=== PATIENT | male | born 1945 | race Caucasian/White ===

== ENCOUNTER 2019-09-23 07:46 | Inpatient (IN) | payer MEDICARE, OTHER ==
--- NOTE | 2019-09-16 15:11 | HP ---
HISTORY AND PHYSICAL: DATE OF ADMISSION/SURGERY: 10/13/19 DATE OF OFFICE VISIT: 09/15/19 SURGEON: Varsha Pickard MD.* (DICTATED BY ENRIQUE MA) PROCEDURE: Left total hip arthroplasty. CHIEF COMPLAINT: Left hip pain. HISTORY OF PRESENT ILLNESS: Mr. 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 He has failed conservative treatment and elected to proceed with a left total hip arthroplasty. PAST MEDICAL HISTORY: 1. Diabetes. 2. Hypertension. 3. Coronary artery disease . 4. Basal cell carcinoma. 5. Melanoma. 6. Sleep apnea. 7. GERD. PAST SURGICAL HISTORY: 1. Stent placement. 2. Vasectomy. 3. Right ACL repair. 4. Right total knee arthroplasty. 5. Lumbar laminectomies. 6. Multiple cervical fusions. CURRENT MEDICATIONS: 1. Gabapentin 600 mg 2 tabs twice a day. 2. Amlodipine 5 mg twice day. 3. Isosorbide mononitrate 60 mg daily. 4. Nitrostat as needed. 5. Atenolol 25 mg daily. 6. Tikosyn 500 mcg twice a day. 7. Pradaxa 150 mg twice a day. 8. Enalapril 10 mg twice a day. 9. Aspirin 81 mg a day. 10. Cymbalta 60 mg a day. 11. Flomax 0.4 mg 2 tabs daily. 12. Glipizide 5 mg at night. 13. Lipitor 10 mg q.h.s. 14. Metformin 1000 mg twice a day. 15. Zetia 10 mg daily. 16. Centrum Silver. 17. CoQ10. 18. Glucosamine. 19. Magnesium 500 mg twice a day. 20. Ranitidine 150 mg twice a day. 21. Doxycycline 50 mg twice a day. 22. Vitamin D. 23. Fish oil. 24. Jardiance 10 mg daily. ALLERGIES: No known drug allergies. FAMILY HISTORY: Coronary artery disease . SOCIAL HISTORY: He is a 74-year-old gentleman, lives with his . He does not smoke or use drugs. REVIEW OF SYSTEMS: A complete 14-point review of systems was reviewed with the patient. Positive for diabetes and GERD. He denies a history of DVT, PE, hepatitis, HIV, or anesthesia problems. PHYSICAL EXAMINATION GENERAL: He is well developed, well nourished, in no acute distress. VITAL SIGNS: He stands 73 inches tall, weighs 243 pounds, blood pressure is 148 /72, heart rate is 53. HEENT: Normocephalic, atraumatic. NECK: Supple. No palpable lymph nodes. PULMONARY: The lungs are clear to auscultation bilaterally. CARDIO: Regular rate and rhythm. Strong S1 and S2. ABDOMEN: Soft, nontender, and nondistended. MUSCULOSKELETAL: Left lower extremity, the skin is intact. There are no open wounds or abrasions. He walks with an antalgic type gait favoring his left hip. He has decreased internal and external rotation of the left hip. He has a 2+ dorsalis pedis pulse. Intact sensation in his lower extremity. Muscle group strengths are intact at 5/5. NEUROLOGIC: He is alert and oriented x3. ASSESSMENT AND PLAN: Mr. Vuong is a 74-year-old gentleman with endstage osteoarthritis of the left hip. He has failed conservative treatment and elected to proceed with a left total hip arthroplasty. This surgery is scheduled for 09/23/[address] Pickard discussed the risks and benefits of the surgery at today's visit and all of his questions were answered. He will follow up with Dr. Pickard 2 weeks after the surgery. No TXA will be used in this patient. He was told to stop his Pradaxa 48 hours before the surgery. His last dose will be 09/20/19. He is going to continue his aspirin daily. ENRIQUE [place] [id number]/[facility] #: [id number] [facility] SQUARE HOSPITALRoberta
[~2019-09-23 07:46] MED LIST: Acetaminophen TAB* 325 MG PO ONE; Buffered Lidocaine 1% SYRIN* 1 ML/SYRINGE INTRADERM ONE; Gabapentin CAP(*) 300 MG PO ONE; Lactated Ringers 1000 ML Bag* 1,000 ML IV SCH; celeCOXIB CAP* 200 MG PO ONE
--- OUTSIDE RECORDS SUMMARY | 2019-09-23 07:50 | XMS REPORT | Continuity of Care Document ---
:1945 External Reference #:[id number] Demographics Address [address] [place] [address] Home Phone [phone] Mobile Phone [phone] Email Address Preferred Language en Marital Status Not or Gnosticist Affiliation Unknown Race White Ethnic Group Not or Author Name Varsha Pickard M.D. (transmitted by agent of provider Page Lopez) Address [address] [place] [id number] Care Team Providers Name Role Phone Jessie Salguero MD - Family Care Team Information Jackhammer Operator [phone] Medicine Yaneth Puente - Vascular Surgery Care Team Information Jackhammer Operator [phone] Anna Marie Desai MD - Neurology Care Team Information Jackhammer Operator Problems Active Problems Provider Date Impending infarction Igor Starks M.D., [facility] Onset: 07/14/2013 Coronary arteriosclerosis Igor Starks M.D., [facility] Onset: 2013 Palpitations Igor Starks M.D., [facility] Onset: 05/19/2014 Lumbosacral stenosis Anna Marie Desai M.D. Onset: 01/26/2015 Note: surgery 04/2011, 10/2013, 04/2016: L2-L5 fusion with rods Idiopathic peripheral neuropathy Anna Marie Desai M.D. Onset: 01/26/2015 Note: history mixed connective tissue disease (ELIJAH 1:1250) & diabetes Cervical myelopathy Anna Marie Desai M.D. Onset: 07/06/2015 Note: Surgery 02/22/15 and 04/28/15: C2-T2 fusion per patient report Heart murmur Igor Starks M.D., [facility], Onset: 08/09/2016 [facility] Dyspnea Igor Starks M.D., [facility], Onset: 08/01/2017 [facility] Thoracic aortic ectasia Igor Starks M.D., [facility], Onset: 04/26/2018 FASBEULAH Carotid artery occlusion Igor Starks M.D., [facility], Onset: 04/26/2018 [facility] Localized, primary osteoarthritis of Varsha Pickard M.D. Onset: 08/25/2019 the pelvic region and thigh Syncope and collapse Igor Starks M.D., [facility], Onset: 05/16/2019 [facility] Social History Type Date Description Comments Sex Unknown Tobacco Use Start: Unknown Former Cigarette End: Unknown Smoker 1 Pack Daily Smoking Status Reviewed: 08/25/19 Former Cigarette Smoker 1 Pack Daily ETOH Use Denies alcohol use ETOH Use Consumed 2 Alcoholic Beverages Per Day Tobacco Use Start: Unknown Patient is a former quit May End: Unknown smoker smoking ciagrettes Recreational Drug Use Denies Drug Use Exercise Type/Frequency Exercises rarely Pt active until three weeks ago (04/20/19) Allergies, Adverse Reactions, Alerts Description No Known Drug Allergies Medications Active Medications SIG Qnty Indications Ordering Provider Date Valium 1 tab by mouth 1 2tabs Anna Marie Desai, 05/27/2019 5mg Tablets hour prior to M.D. mri. may repeat x1 at mri, if not sedated Gabapentin take 2 by mouth Anna Marie Desai, 01/07/2018 600mg twice each day M.D. Tablets to equal 2400mg each day Amlodipine Besylate 1 by mouth every 90tabs Igor Starks, 01/10/2017 5mg day bid M.D., MARIAM MCDONALD Tablets Isosorbide 1 by mouth every 90tabs Igor Starks, 07/14/2013 Mononitrate ER day M.D., TAMARA, GISSELLNC 60mg Tablets ER 24HR Nitrostat 1 sl q5mins x3 100tabs Igor Starks, 05/26/2013 0.4mg Tablets as needed for M.D., MARIAM MCDONALD Sub chest pain, if no relief call 911 Atenolol 1 by mouth every 90tabs Igor Starks, 09/18/2012 25mg Tablets day M.D., MARIAM MCDONALD Tikosyn 1 by mouth twice 180caps Igor Starks, 09/18/2012 500mcg Capsules a day M.D., FACC, FASNC Pradaxa 1 cap by mouth 180caps Igor Starks, 09/18/2012 150mg Capsules twice a day TAMARA Pérez FASNC Enalapril Maleate 1 tab by mouth 180tabs Igor Starks, 06/11/2012 10mg twice a day Eddy.TAMARA Segura FASNC Tablets Jardiance 10 mg by mouth Unknown 10mg Tablets daily Ammonium Lactate use on Unknown 12% feet(bunions)twi Cream ce daily Fish Oil 1 tab by mouth Unknown 1000mg twice daily Capsules Vitamin D High 1 by mouth every Unknown Potency day 1000Unit Capsules Doxycycline Hyclate 1 by mouth twice Unknown daily 50mg Capsules Ranitidine HCL 1 po bid 60caps Unknown 150mg Capsules Magnesium take one tab by 60tabs Unknown 500mg Tablets mouth twice daily Glucosamine Sulfate 1 cap po bid Unknown Maximum Potency 1000mg Capsules Co Q-10 1 po qd 90caps Unknown 200mg Capsules Centrum Silver Adult 1 tab po daily Unknown 50+ Adult 50 Tablets Zetia 1 by mouth every 90tabs Igor Starks, 10mg Tablets day M.DTAMARA Guerrero FASNC Metformin HCL ER 1 tab po bid 90tabs Unknown 1000mg Tablets ER 24HR Lipitor 1 po qhs 90tabs Igor Starks, 10mg Tablets M.DTAMARA Guerrero FASNC Glipizide 1 tab by mouth 60tabs Unknown 5mg Tablets at night Flomax 2 caps po qd 90caps Unknown 0.4mg Capsules Cymbalta 1 by mouth every 30caps Unknown 60mg Caps DR day Part Aspirin Ec 1 po qd 90tabs Unknown 81mg Tablets DR Medications Administered in Office Medication SIG Qnty Indications Ordering Provider Date Inj, Regadenoson, 0.1 MG Igor Starks M.D., 08/06/2017 Injection MARIAM MCDONALD Technetium TC 99M Igor Starks M.D., 08/06/2017 Tetrofosmin, Per Unit Dose FACC, FASNC Up To 40 Millicuries Injection Inj, Regadenoson, 0.1 MG Jorge Agudelo, DO [facility] 04/20/2016 Injection Technetium TC 99M Jorge Donny Agudelo, DO [facility] 04/20/2016 Tetrofosmin, Per Unit Dose Up To 40 Millicuries Injection Technetium TC 99M Ramsey Jara M.D. 02/10/2015 Tetrofosmin, Per Unit Dose Up To 40 Mill[place] Injection Technetium TC 99M Eloy Eugene M.D. 02/10/2015 Tetrofosmin, Per Unit Dose Up To 40 Mill[place] Injection Immunizations Description No Information Available Vital Signs Date Vital Result Comment 08/25/2019 2:18pm Height 73.50 inches 6'1.50" Weight 242.00 lb Heart Rate 57 /min BP Systolic 136 mmHg BP Diastolic 80 mmHg Body Temperature 97.9 F Pain Level 8 BMI (Body Mass Index) 31.5 kg/m2 07/22/2019 8:36am Height 73.50 inches 6'1.50" Weight 239.38 lb Heart Rate 56 /min BP Systolic Sitting 137 mmHg BP Diastolic Sitting 74 mmHg Respiratory Rate 16 /min Body Temperature 97.9 F Pain Level 7 back and legs, constant O2 % BldC Oximetry 97 % BMI (Body Mass Index) 31.2 kg/m2 Results Description No Information Available Procedures Date Code Description Status 05/16/2019 62433 EKG Tracing & Interpretation Completed 07/23/2017 415045603 Diabetic Retinal Eye Exam Completed 06/04/2017 [id number] Diabetic Retinal Eye Exam Completed Medical Devices Description No Information Available Encounters Type Date Location Provider Dx Diagnosis Office Visit 07/22/2019 [facility], M48.07 Spinal stenosis, 8:30a [facility] [place] lumbosacral region [place] E11.42 Type 2 diabetes mellitus with diabetic polyneuropathy Office Visit 06/11/2019 1:30p [facility] Igor Jitendra I77.810 Thoracic aortic [facility] [place] Starks M.D., [facility]10 [place] heart disease [place] coronary artery w/o ang pctrs I48.0 Paroxysmal atrial fibrillation Office Visit 05/27/2019 [facility] Anna Marie M48.07 Spinal stenosis, 4:00p [facility] [place] Desai lumbosacral [facility] region Office Visit 05/16/2019 [facility] Igor Ham R55 Syncope and 12:45p Of [employer] [facility] [place] Starks M.D., collapse [facility] R42 Dizziness and giddiness I25.10 Athscl heart disease of [place] coronary artery w/o ang pctrs I48.0 Paroxysmal atrial fibrillation R94.31 Abnormal electrocardiogram [ECG] [EKG] Office Visit 04/22/2019 11:30a [facility] Anna Marie Desai, M79.651 Pain in [facility] [place] right thigh M79.652 Pain in left thigh M54.5 Low back pain R53.1 Weakness E11.42 Type 2 diabetes mellitus with diabetic polyneuropathy Assessments Date Code Description Provider 08/25/2019 M25.552 Pain in left hip Varsha Pickard M.D. 08/25/2019 M16.12 Unilateral primary osteoarthritis, Varsha Pickard M.D. left hip 08/25/2019 M25.551 Pain in right hip Varsha Pickard M.D. 08/25/2019 M16.11 Unilateral primary osteoarthritisVarsha M.D. right hip 07/22/2019 M48.07 Spinal stenosis, lumbosacral region Anna Marie Desai M.D. 07/22/2019 E11.42 Type 2 diabetes mellitus with diabetic Anna Marie Desai M.D. polyneuropathy 06/11/2019 I77.810 Thoracic aortic ectasia Igor Starks M.D., [facility], [facility] 06/11/2019 I25.10 Atherosclerotic heart disease of Igor Starks M.D., [place] coronary artery without angina [facility], [facility] pectoris 06/11/2019 I48.0 Paroxysmal atrial fibrillation Igor Starks M.D., [facility] 05/27/2019 M48.07 Spinal stenosis, lumbosacral region Anna Marie Desai M.D. 05/16/2019 R55 Syncope and collapse Igor Starks M.D., [facility], [facility] 05/16/2019 R42 Dizziness and giddiness Igor Starks M.D., [facility], [facility] 05/16/2019 I25.10 Atherosclerotic heart disease of Igor Starks M.D., [place] coronary artery without angina [facility] pectoris 05/16/2019 I48.0 Paroxysmal atrial fibrillation Igor Starks M.D., [facility] 05/16/2019 R94.31 Abnormal electrocardiogram [ECG] [EKG] Igor Starks M.D., [facility] 04/22/2019 M79.651 Pain in right thigh Anna Marie Desai M.D. 04/22/2019 M79.652 Pain in left thigh Anna Marie Desai M.D. 04/22/2019 M54.5 Low back pain Anna Marie Desai M.D. 04/22/2019 R53.1 Weakness Anna Marie Desai M.D. 04/22/2019 E11.42 Type 2 diabetes mellitus with diabetic Anna Marie Desai M.D. polyneuropathy Plan of Treatment Future Appointment(s):12/23/2019 8:30 am - Anna Marie [facility] M.D. at [facility]08/25/2019 - Varsha Pickard M.D.M25.552 Pain in left hipFollow up:Follow up: 7-10 days before biselweV16.12 Unilateral primary osteoarthritis, left hipM25.551 Pain in right hipM16.11 Unilateral primary osteoarthritis, right hip Functional Status Description No Information Available Mental Status Description No Information Available Referrals Refer to Dr Reason for Referral Status Appt Date Raheem Montgomery MD history of lumbosacral radiculopathy in both Closed 06/18 legs in the setting of multiple previous surgeries with DR. Montgomery (Last cervical surgery April 2015; last back surgery October 2013) [address] [place] [id number] [phone]
--- OUTSIDE RECORDS SUMMARY | 2019-09-23 07:50 | XMS REPORT | Continuity of Care Document ---
:1945 External Reference #:[id number] Demographics Address [address] [place] [address] Home Phone [phone] Mobile Phone [phone] Email Address Preferred Language en Marital Status Not or Christianity Affiliation Unknown Race White Ethnic Group Not or Author Name Varsha Pickard M.D. (transmitted by agent of provider Yareli Mackay) Address [address] [place] [address] [place] [address] Care Team Providers Name Role Phone Jessie Salguero MD - Family Care Team Information Printed Circuit [employer] Reworker [phone] Yaneth Motta - Vascular Surgery Care Team Information Printed [employer] Reworker Anna Marie Desai MD - Neurology Care Team Information Printed [employer] Reworker Problems Active Problems Provider Date Impending infarction Igor Starks M.D., [facility] Onset: 07/14/2013 Coronary arteriosclerosis Igor Starks M.D., [facility] Onset: 2013 Palpitations Igor Starks M.D., [facility] Onset: 05/19/2014 Lumbosacral stenosis Anna Marie Desai M.D. Onset: 01/26/2015 Note: surgery 04/2011, 10/2013, 04/2016: L2-L5 fusion with rods Idiopathic peripheral neuropathy Anna Marie Desai M.D. Onset: 01/26/2015 Note: history mixed connective tissue disease (ELIJAH 1:1250) & diabetes Cervical myelopathy Anna Marie Desai M.D. Onset: 07/06/2015 Note: Surgery 02/22/15 and 04/28/15: C2-T2 fusion per patient report Heart murmur Igor Starks M.D., [facility], Onset: 08/09/2016 [facility] Dyspnea Igor Starks M.D., [facility], Onset: 08/01/2017 [facility] Thoracic aortic ectasia Igor Starks M.D., [facility], Onset: 04/26/2018 [facility] Carotid artery occlusion Igor Starks M.D., [facility], Onset: 04/26/2018 [facility] Syncope and collapse Igor Starks M.D., [facility], Onset: 05/16/2019 [facility] Localized, primary osteoarthritis of Varsha Pickard M.D. Onset: 08/25/2019 the pelvic region and thigh Social History Type Date Description Comments Sex Unknown Tobacco Use Start: Unknown Former Cigarette End: Unknown Smoker 1 Pack Daily Smoking Status Reviewed: 09/15/19 Former Cigarette Smoker 1 Pack Daily ETOH [...] Medications SIG Qnty Indications Ordering Provider Date Tramadol HCL 1 tab every 8 21tabs Varsha Pickard, 09/15/2019 50mg hours as needed M.D. Tablets for pain Gabapentin take 2 by mouth Anna Marie Desai, 01/07/2018 600mg twice each day M.D. Tablets to equal 2400mg each day Amlodipine Besylate 1 by mouth every 90tabs Igor Starks, 01/10/2017 5mg day bid M.D., FACC, GISSELLNC Tablets Isosorbide 1 by mouth every 90tabs Igor Starks, 07/14/2013 Mononitrate ER day M.D., FACC, GISSELLNC 60mg Tablets ER 24HR Nitrostat 1 sl q5mins x3 100tabs Igor Starks, 05/26/2013 0.4mg Tablets as needed for M.D., FACC, FASNC Sub chest pain, if no relief call 911 Atenolol 1 by mouth every 90tabs Igor Starks, 09/18/2012 25mg Tablets day M.D., FACC, GISSELLNC Tikosyn 1 by mouth twice 180caps Igor Starks, 09/18/2012 500mcg Capsules a day M.D., FACC, GISSELLNC Pradaxa 1 cap by mouth 180caps Igor Starks, 09/18/2012 150mg Capsules twice a day M.D., MARIAM MCDONALD Enalapril Maleate 1 tab by mouth 180tabs Igor Starks, 06/11/2012 10mg twice a day M.D., MARIAM MCDONALD Tablets Jardiance 10 mg by mouth Unknown 10mg Tablets daily Ammonium Lactate use on Unknown 12% feet(bunions)anabel Cream ly Fish Oil 1 tab by mouth Unknown [...] every 90tabs Igor Starks, 10mg Tablets day M.D., MARIAM MCDONALD Metformin HCL ER 1 tab po bid 90tabs Unknown 1000mg Tablets ER 24HR Lipitor 1 po qhs 90tabs Igor Starks, 10mg Tablets M.D., MARIAM MCDONALD Glipizide 1 tab by mouth 60tabs Unknown 5mg Tablets at night Flomax 2 caps po qd 90caps Unknown 0.4mg Capsules Cymbalta 1 by mouth every 30caps Unknown 60mg Caps DR day Part Aspirin Ec 1 po qd 90tabs Unknown 81mg Tablets DR History Medications Valium 1 tab by mouth 1 2tabs Anna Marie Desai M.D. 05/27/2019 - 5mg Tablets hour prior to mri. 08/28/2019 may repeat x1 at mri, if not sedated Medications Administered in Office Medication SIG Qnty Indications Ordering Provider Date Inj, Regadenoson, 0.1 MG Igor Starks M.D., 08/06/2017 Injection [facility] Technetium TC 99M Igor Jitendra Starks M.D., 08/06/2017 Tetrofosmin, Per Unit Dose [facility] Up To 40 Millicuries Injection Inj, Regadenoson, 0.1 MG Jorge Agudelo, DO [facility] 04/20/2016 Injection Technetium TC 99M Jorge S. Agudelo, DO [facility] 04/20/2016 Tetrofosmin, Per Unit Dose Up To 40 Millicuries Injection Technetium TC 99M Ramsey Jara M.D. 02/10/2015 Tetrofosmin, Per Unit Dose Up To 40 Millicuries Injection Technetium TC 99M Eloy Eugene M.D. 02/10/2015 Tetrofosmin, Per Unit Dose Up To 40 Millicuries Injection Immunizations Description No Information Available Vital Signs Date Vital Result Comment 09/15/2019 8:57am Height 73.50 inches 6'1.50" Weight 243.00 lb Heart Rate 53 /min BP Systolic 148 mmHg BP Diastolic 72 mmHg Body Temperature 97.3 F Pain Level 8 BMI (Body Mass Index) 31.6 kg/m2 08/29/2019 10:26am Height 73.50 inches 6'1.50" Weight 241.00 lb Heart Rate 52 /min BP Systolic Sitting 144 mmHg LA Regular Cuff BP Diastolic Sitting 68 mmHg LA Regular Cuff BP Systolic Standing 134 mmHg LA Regular Cuff BP Diastolic Standing 76 mmHg LA Regular Cuff Respiratory Rate 16 /min Pain Level 7 hips/leg pain O2 % BldC Oximetry 96 % BMI (Body Mass Index) 31.4 kg/m2 Results Description No Information Available Procedures Date Code Description Status 08/29/2019 68329 EKG Tracing & Interpretation Completed 05/16/2019 73334 EKG Tracing & Interpretation Completed 07/23/2017 191006674 Diabetic Retinal Eye Exam Completed 06/04/2017 420070091 Diabetic Retinal Eye Exam Completed Medical Devices Description No Information Available Encounters Type Date Location Provider Dx Diagnosis Office Visit 08/29/2019 Cardiology Igor Ham Z01.810 Encounter for 10:30a Services Of [facility] Starks M.D., preprocedural AT [facility] cardiovascular examination M16.0 Bilateral primary osteoarthritis of hip I25.10 Athscl heart disease of [place] coronary artery w/o ang pctrs I48.0 Paroxysmal atrial fibrillation R00.1 Bradycardia, unspecified Office Visit 08/25/2019 1:45p [facility] Varsha Pickard, M25.552 [place] M16.12 Unilateral primary osteoarthritis, left hip M25.551 Pain in right hip M16.11 Unilateral primary osteoarthritis, right hip [facility], 8:30a [facility] Of Elisa Desai lumbosacral [facility] region E11.42 Type 2 diabetes mellitus with diabetic polyneuropathy Office Visit 06/11/2019 1:30p [facility] Igor Jitendra I77.810 Thoracic aortic Of [place] Starks M.D., ectasia FAC, FASNC I25.10 Athscl heart disease of [place] coronary artery w/o ang pctrs I48.0 Paroxysmal atrial fibrillation Office Visit 05/27/2019 [facility] Anna Marie M48.07 Spinal stenosis, 4:00p Neurologic Serv Of Elisa Desai lumbosacral [facility] region Office Visit 05/16/2019 Cardiology Services Igor Ham R55 Syncope and 12:45p Of [facility] AT Ruperto Starks M.D., collapse FAC, FASNC R42 Dizziness and giddiness I25.10 Athscl heart disease of [place] coronary artery w/o ang pctrs I48.0 Paroxysmal atrial fibrillation R94.31 Abnormal electrocardiogram [ECG] [EKG] Office Visit 04/22/2019 11:30a [facility] Anna Marie Desai, M79.651 Pain in [facility]rolog[facility] [place] right thigh M79.652 Pain in left thigh M54.5 Low back pain R53.1 Weakness E11.42 Type 2 diabetes mellitus with diabetic polyneuropathy Assessments Date Code Description Provider 09/15/2019 M25.552 Pain in left hip Varsha Pickard M.D. 09/15/2019 M16.12 Unilateral primary osteoarthritis, Varsha Pickard M.D. left hip 08/29/2019 Z01.810 Encounter for preprocedural Igor Starks M.D., cardiovascular examination FACC, FASNC 08/29/2019 M16.0 Bilateral primary osteoarthritis of Igor Starks M.D., hip [facility] 08/29/2019 I25.10 Atherosclerotic heart disease of Igor Starks M.D., [place] coronary artery without angina [facility] pectoris 08/29/2019 I48.0 Paroxysmal atrial fibrillation Igor Starks M.D., [facility] 08/29/2019 R00.1 Bradycardia, unspecified Igor Starks M.D., [facility] 08/25/2019 M25.552 Pain in left hip Varsha Pickard M.D. 08/25/2019 M16.12 Unilateral primary osteoarthritis, Varsha Pickard M.D. left hip 08/25/2019 M25.551 Pain in right hip Varsha Pickard M.D. 08/25/2019 M16.11 Unilateral primary osteoarthritis, Varsha Pickard M.D. right hip 07/22/2019 M48.07 Spinal stenosis, lumbosacral region Anna Marie Desai M.D. 07/22/2019 E11.42 Type 2 diabetes mellitus with diabetic Anna Marie Desai M.D. polyneuropathy 06/11/2019 I77.810 Thoracic aortic ectasia Igor Starks M.D., [facility] 06/11/2019 I25.10 Atherosclerotic heart disease of Igor Starks M.D., [place] coronary artery without angina [facility] pector 06/11/2019 I48.0 Paroxysmal atrial fibrillation Igor Starks M.D., [facility] 05/27/2019 M48.07 Spinal stenosis, lumbosacral region Anna Marie Desai M.D. 05/16/2019 R55 Syncope and collapse Igor Starks M.D., [facility] 05/16/2019 R42 Dizziness and giddiness Igor Starks M.D., [facility] 05/16/2019 I25.10 Atherosclerotic heart disease of Igor Starks M.D., [place] coronary artery without angina [facility] pector 05/16/2019 I48.0 Paroxysmal atrial fibrillation Igor Starks M.D., [facility] 05/16/2019 R94.31 Abnormal electrocardiogram [ECG] [EKG] Igor Starks M.D., [facility] 04/22/2019 M79.651 Pain in right thigh Anna Marie Desai M.D. 04/22/2019 M79.652 Pain in left thigh Anna Marie Desai M.D. 04/22/2019 M54.5 Low back pain Anna Marie Desai M.D. 04/22/2019 R53.1 Weakness Anna Marie Desai M.D. 04/22/2019 E11.42 Type 2 diabetes mellitus with diabetic Anna Marie Desai M.D. polyneuropathy Plan of Treatment Future Appointment(s):10/06/2019 9:00 am - ENRIQUE García at [id number]/23/2019 4:30 pm - [facility] - ENRIQUE García at [facility]09/23/2019 4:30 pm - Varsha Pickard M.D. at [facility]12/23/2019 8:30 am - Anna Marie Desai M.D. at [facility]09/15/2019 - Varsha Pickard M.D.M25.552 Pain in left hipFollow up:Follow up: 2 weeks after lmkousiF09.12 Unilateral primary osteoarthritis, left hip Functional Status Description No Information Available Mental Status Description No Information Available Referrals Refer to Reason for Referral Status Appt Date Raheem Montgomery MD history of lumbosacral radiculopathy in both Closed 06/18 legs in the setting of multiple previous surgeries with DR. Montgomery (Last cervical surgery April 2015; last back surgery October 2013) [address] [place] [phone]
--- OUTSIDE RECORDS SUMMARY | 2019-09-23 07:50 | XMS REPORT | Continuity of Care Document ---
:1945 External Reference #:[id number] Demographics Address [address] [place] [address] Home Phone [phone] Mobile Phone [phone] Email Address Preferred Language en Marital Status Not or Orthodox Affiliation Unknown Race White Ethnic Group Not or Author Name Jessie Salguero MD Address [address] [place] [address] Care Team Providers Name Role Phone Igor Starks MD Care Team Information Test Analyst [phone] - Pain Medicine Care Team Information Test Analyst [phone] [facility] - Pain Care Team Information Test Analyst [phone] Medicine Jessie Salguero MD - Family Care Team Information Test Analyst [phone] Medicine Anna Marie Desai Care Team Information Test Analyst [phone] Nehemiah Hubbard MD - Ophthalmology Care Team Information Test Analyst [phone] Cory Guzman MD Care Team Information Test Analyst [phone] Problems Active Problems Provider Date Atrial fibrillation Jessie Salguero MD Onset: 09/13/2012 Erythema nodosum Jessie Salguero MD Onset: 01/05/2012 Vitamin D deficiency Jessie Salguero MD Onset: 03/16/2011 Peripheral vascular disease Jessie Salguero MD Onset: 09/13/2010 Carotid artery occlusion Jessie Salguero MD Onset: 09/13/2010 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 Jessie Salguero MD Onset: 01/29/2009 Nervous system disorder due to diabetes Jessie Salguero MD Onset: 2008 mellitus Sleep apnea Jessie Salguero MD Onset: 04/22/2008 Gastroesophageal reflux disease Jessie Salguero MD Onset: 12/20/2007 Benign prostatic hypertrophy without outflow Jessie Salguero MD Onset: 09/2007 obstruction Benign essential hypertension Jessie Salguero MD Onset: 12/20/2007 Coronary arteriosclerosis Jessie Salguero MD Onset: 12/20/2007 Mixed hyperlipidemia Jessie Salguero MD Onset: 12/20/2007 Type 2 diabetes mellitus Jessie Salguero MD Onset: 12/20/2007 Degenerative joint disease involving multiple Jessie Salguero MD Onset: 09/2007 joints Disorder of magnesium metabolism Jessie Salguero MD Onset: 10/06/2014 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 Ex-smoker Jessie Salguero MD Onset: 10/21/2015 Paroxysmal atrial fibrillation Jessie Salguero MD Onset: 02/05/2017 Chronic obstructive lung disease Jessie Salguero MD Onset: 09/07/2017 Aneurysm of thoracic aorta Jessie Salguero MD Onset: 09/07/2017 Benign neoplasm of colon Jessie Salguero MD Onset: 12/17/2017 History of malignant neoplasm of skin Jessie Salguero MD Onset: 12/17/2017 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 Long-term current use of anticoagulant Jessie Salguero MD Onset: 06/18/2018 Benign prostatic hypertrophy with outflow Jessie Salguero MD Onset: 2018 obstruction Localized, primary osteoarthritis of the Jessie Salguero MD Onset: 2018 pelvic region and thigh Social History Type Date Description Comments Sex Unknown ETOH Use Denies alcohol use Tobacco Use Start: 08/20/59 Patient is a former smoked age 15 to 1977, End: 05/20/78 smoker age about 33, at age 19 up to 1ppd to 3ppd until quit at age 33; Reviewed 11/09/16 and not eligible for lung cancer screening based on history over 15 years ago quit [facility] Document: 11/09/16 - Followup: 90 Days, CPX Male Recreational Drug Use Denies Drug Use Smoking Status Reviewed: Patient is a former smoked age 15 to 1977, 11/19/18 smoker age about 33, at age 19 up to 1ppd to 3ppd until quit at age 33; Reviewed 11/09/16 and not eligible for lung cancer screening based on history over 15 years ago quit [facility] Document: 11/09/16 - Followup: 90 Days, CPX Male Exercise Type/Frequency Exercises regularly Exercises regularly, stafionary bike, golf, walk Allergies, Adverse Reactions, Alerts Description No Known Drug Allergies Medications Active Medications SIG Qnty Indications Ordering Provider Date Diclofenac Sodium 4gm to groin/hip 300gm M16.0 Jessie Salguero, 2018 1% joint bilateral up Gel to 4 times daily Jardiance 1 by mouth daily 90tabs E11.42 Jessie Salguero, 06/19/2019 10mg in the morning Tablets Isosorbide 1 by mouth every 90tabs I25.10 Jessie Salguero, 07/18/2018 Mononitrate ER day MD 60mg Tablets ER 24HR Duloxetine HCL 1 by mouth every 90caps E11.42 Jessie Salguero, 03/21/[address] [place] M51.06 M50.020 Freestyle Lite Blood check blood 1units E11.42 Jessie Salguero MD 2017 Glucose Monitoring sugars once daily System and as needed Device Gabapentin 1 by mouth in 360tabs E11.42 Jessie Salguero MD 10/16/2017 600mg morning and noon, Tablets 2 at bedtime M51.06 Ezetimibe 1 by mouth daily 90tabs E78.2 Jessie Salguero MD 02/05/2017 10mg Tablets Ranitidine HCL take 1 tablet 180tabs K21.9 Jessie Salguero MD 02/22/2016 150mg twice a day 30 Tablets minutes before meals Magnesium Oxide 1 by mouth twice 180tabs E83.42 Jessie Salguero MD 01/20 daily 400(241.3mg) mg Tablets Bipap G47.30 Hunter Ham MD 10/13/2015 Device Freestyle Lite use to test daily 300units Jessie Salguero MD 11/11/2014 Na and as needed Test [id number] Freestyle Lancets check daily and 100units E11.42 Jessie Salguero MD 02/2015 as needed [facility] [place] Test test daily and as 100units E11.42 Jessie Salguero MD 08/26/2014 needed e11.42 Na Strips Atenolol take 1 tablet at 90tabs I10 Jessie Salguero MD 09/13/2012 25mg Tablets nigh Pradaxa 1 po bid 60caps I48.0 Unknown 09/10/2012 150mg Capsules Z79.01 Aspirin Low Dose 1 by mouth every day I25.10 Jessie Salguero MD 2011 81mg Tablets E78.2 Tamsulosin HCL take 2 capsules 180caps N40.1 Jessie Salguero MD 2011 0.4mg 30 minutes after Capsules evening meal Glipizide 1 by mouth once a 180tabs E11.42 Jessie Salguero MD 04/20/2011 5mg Tablets day 30min before meal Coenzyme Q10 1 po daily E78.2 Jessie Salguero MD 02/19/2008 100mg Capsules Centrum Silver 1po daily Jessie Salguero MD 12/20/2007 Tablets Glucosamine Sulfate 1 PO bid M15.0 Jessie Salguero MD 12/20/2007 1000mg Tablets Enalapril Maleate take 1 tablet 180tabs I10 Jessie Salguero MD 2007 10mg twice a day Tablets Tikosyn 1 by mouth twice I25.10 Igor Starks MD 500mcg Capsules a day Amlodipine Besylate 1 in the morning 180tabs I10 Jessie Salguero MD 5mg 1 in the evening Tablets Nitrostat 1 sl every 5min 90tabs Unknown 0.4mg Tablets as needed chest Sub pain Metformin HCL take 1 tablet by 180tabs E11.42 Jessie Salguero MD 1000mg mouth twice daily Tablets with meals Imdur 1 by mouth every I25.10 Igor Starks MD 60mg Tablets ER day 24HR Doxycycline Hyclate 1 by mouth by L52 April Christine, 50mg mouth once daily, Capsules twice daily summer Fish Oil Double 1 by mouth twice Unknown Strength daily 1200mg Capsules Atorvastatin Calcium take 1 tablet 90tabs E78.2 Jessie Salguero MD 10mg daily Tablets Benzaclin wash and dry face Unknown 1-5% Gel then apply qd Vitamin D3 Gummies 4 by mouth every Unknown Adult day 1000Unit [place] Immunizations CPT Code Status Date Vaccine Reaction Lot # [id number] Given 04/28/2019 Influenza Vaccine, Inactivated, Subunit, Adjuvanted, For Im Q2039 Given 04/26/2018 Flu Vaccine NOS GIVEN ATPHARMACY 73407 Given 04/26/2018 Prevnar 13 Pneumococal Conjugate GIVEN AT PHARMACY Vaccine 34082 Given 03/06/2018 Shingrix (Shingles) Zoster [facility] Vaccine HZV, Recombinant, Subunit, Adj 97330 Given 01/02/2018 Shingrix (Shingles) Zoster Vaccine HZV, Recombinant, Subunit, Adj 43198 Given 04/24/2017 Influenza Virus Vaccine,Quadrivalent,Split,Prese rv Free, 0.5mL,Im 56298 Given 04/12/2016 Fluzone Highdose Age 65 And Over Preservative & Antibiotic Free 71459 Given 10/21/2015 Pneumococcal 23 Immunization [id number] Adult Or Immunosuppressed Patient Q2035 Given 04/01/2015 Afluria Imunization 39680 Given 12/30/2014 Tetanus And Diptheria Toxoid 7 [id number] Years And Older Preserv Free 86528 Given 10/06/2014 Prevnar 13 Pneumococal Conjugate [id number] Vaccine 19391 Given 04/16/2014 Fluzone Highdose Age 65 And Over Preservative & Antibiotic Free 11757 Given 04/16/2014 Fluzone Highdose Age 65 And Over Preservative & Antibiotic Free 77303 Given 05/13/2013 Afluria Or Fluvirin Flu Vac Intramuscular 71017 Given 12/12/2012 Zoster (Zostavax) 47402 Given 04/09/2012 Afluria Or Fluvirin Flu Vac Intramuscular 29107 Given 04/20/2011 Afluria Or Fluvirin Flu Vac Intramuscular 68071 Given 08/05/2009 Administration Swine Flu Vaccine H1N1 34323 Given 05/05/2009 Afluria Or Fluvirin Flu Vac Intramuscular 36133 Given 06/15/2008 Afluria Or Fluvirin Flu Vac Intramuscular 10569 Given 07/10/2005 Pneumococcal 23 Immunization Adult Or Immunosuppressed Patient 28491 Given 12/11/2004 Immunization Td 7 Yrs Or Older 07449 Given 08/20/2002 Tetanus And Diptheria Toxoid 7 Years And Older Preserv Free 13158 Given 05/17/2000 Afluria Or Fluvirin Flu Vac Intramuscular Q2039 Refused 04/02/2019 Flu Vaccine NOS WILL GET IN FALL Vital Signs Date Vital Result Comment 08/07/2019 11:39am Weight 240.00 lb Heart Rate 56 /min BP Systolic 160 mmHg BP Diastolic 84 mmHg Respiratory Rate 20 /min Height 70.5 inches 5'10.50" O2 % BldC Oximetry 98 % BMI (Body Mass Index) 33.9 kg/m2 06/19/2019 9:13am Weight 240.00 lb Heart Rate 53 /min BP Systolic 136 mmHg BP Diastolic 78 mmHg Respiratory Rate 18 /min Height 70.5 inches 5'10.50" O2 % BldC Oximetry 98 % ra BMI (Body Mass Index) 33.9 kg/m2 Results Test Acquired Date Facility Test Result H/L Range Note Basic (BMP) 07/03/2019 [facility] Sodium 137 mmol/L 135-146 1, 2 Potassium 4.6 mmol/L 3.5-5.2 Chloride# 101 mmol/L 97-110 3 Carbon Dioxide 28 mmol/L 24-34 Glucose 119 mg/dL High 70-105 BUN 17 mg/dL 6-26 Creatinine 0.8 mg/dL 0.5-1.4 Calcium 9.5 mg/dL 8.5-10.5 4 Female Egfr 79 >60 5 Male Egfr 91 >60 6 Anion Gap 8 mmol/L 5-15 7 Glycohemoglobin A1c 06/16/2019 [facility] Glycohemoglobin 7.7 % High 4.2-6.3 8, 9 (315)- - (A1c) eAG 174 mg/dL Comprehensive Metabolic 06/16/2019 [facility] Glucose 223 mg/dL High 74-106 Panel (315)- - BUN 20 mg/dL High 7-18 Creatinine 1.0 mg/dL Normal 0.6-1.3 Glom Filtration Rate, Estimate >60 mL/min >60 If >60 mL/min >60 10 BUN/Creat 20.0 ratio Sodium 137 mmol/L Normal 136-145 Potassium 4.7 mmol/L Normal 3.5-5.1 Chloride 103 mmol/L Normal 98-107 Carbon Dioxide 30 mmol/L Normal 21-32 Anion Gap 4 mEq/L Low 8-16 Calcium 9.0 mg/dL Normal 8.5-10.1 Total Protein 7.5 g/dL Normal 6.4-8.2 Albumin 3.7 g/dL Normal 3.4-5.0 Globulin 3.8 g/dL Normal 1.9-4.3 Alb/Glob 1.0 ratio Bilirubin,Total 0.3 mg/dL Normal 0.2-1.0 Sgot/Ast 14 U/L Low 15-37 11 SGPT/Alt 35 U/L Normal 12-78 Alkaline Phosphatase 70 U/L Normal 45-117 LDL Cholesterol 06/16/2019 [facility] Cholesterol 117 mg/ dL <200 12 Profile (315)- - Triglycerides 211 mg/dL High <150 13 HDL Cholesterol 36 mg/dL Low >40 14 LDL-Cholesterol 39 mg/dL < 100 15 Laboratory test finding 06/16/[address] [facility] CK 66 U/L Normal 39-308 (315)- - Magnesium 2.2 mg/dL Normal 1.8-2.4 Glycohemoglobin 03/28/2019 [facility] Glycohemoglobin 7.1 % High 4.2-6.3 16, 17 A1c (315)- - (A1c) eAG 157 mg/dL Comprehensive Metabolic 03/28/[address] [facility] Glucose 168 mg/dL High 74-106 Panel (315)- - BUN 16 mg/dL Normal 7-18 Creatinine 0.8 mg/dL Normal 0.6-1.3 Glom Filtration Rate, Estimate >60 mL/min >60 If >60 mL/min >60 18 BUN/Creat 20.0 ratio Sodium 137 mmol/L Normal 136-145 Potassium 4.6 mmol/L Normal 3.5-5.1 Chloride 102 mmol/L Normal 98-107 Carbon Dioxide 28 mmol/L Normal 21-32 Anion Gap 7 mEq/L Low 8-16 Calcium 8.8 mg/dL Normal 8.5-10.1 Total Protein 7.9 g/dL Normal 6.4-8.2 Albumin 3.6 g/dL Normal 3.4-5.0 Globulin 4.3 g/dL Normal 1.9-4.3 Alb/Glob 0.8 ratio Bilirubin,Total 0.5 mg/dL Normal 0.2-1.0 Sgot/Ast 20 U/L Normal 15-37 SGPT/Alt 38 U/L Normal 12-78 Alkaline Phosphatase 87 U/L Normal 45-117 LDL Cholesterol 03/28/[address] [facility] Cholesterol 114 mg/ dL <200 19 Profile (315)- - Triglycerides 89 mg/dL <150 20 HDL Cholesterol 42 mg/dL >40 21 LDL-Cholesterol 54 mg/dL < 100 22 Laboratory test finding 03/28/[address] [facility] CK 105 U/L Normal 39-308 (315)- - Magnesium 2.0 mg/dL Normal 1.8-2.4 CBS W/Automated 03/28/2019 [facility] White Blood 6.6 K/ uL Normal 3.4-10.5 Diff (315)- - Count Red Blood Count 4.32 M/uL Normal 4.20-5.80 Hemoglobin 13.1 gm/dL Normal 12.8-17.0 Hematocrit 40.4 % Normal 38.0-48.0 Mean Cell Volume 93.5 fl Normal 80.0-96.0 Mean Corpuscular HGB 30.3 pg Normal 27.0-33.0 Mean Corpuscular HGB Conc 32.4 g/dL Normal 31.7-36.0 Platelet Count 312 K/uL Normal 155-360 Red Cell Distri Width SD 45.1 fl Normal 36-51 Red Cell Distri Width %CV 13.2 % Normal 11.6-15.8 Mean Platelet Volume 9.4 fl Normal 6.6-10.6 Neut% 65.7 % Normal 33.0-73.0 Lymph % 21.3 % Normal 20.0-42.0 [place] % 10.5 % High 0.0-10.0 Eo% 1.4 % Normal 0.0-6.6 Bas% 0.5 % Normal 0.0-1.1 Immature Grans 0.6 % Normal 0.0-5.0 NRBC % 0.0 /100WBC < 10/ 100 WBC Neut# 4.32 K/uL Normal 1.8-7.0 Lymph # 1.40 K/uL Normal 1.0-4.0 [place] # 0.69 K/uL Normal 0.0-0.8 Eos # 0.09 K/uL Normal 0.0-0.5 Baso # 0.03 K/uL Normal 0.0-0.1 Immature Grans Absolute 0.04 K/uL NRBC # 0.00 K/uL Glycohemoglobin 02/12/2019 [facility] Glycohemoglobin 6.7 % High 4.2-6.3 23, 24 A1c (315)- - (A1c) eAG 146 mg/dL Comprehensive Metabolic 02/12/2019 [facility] Glucose 186 mg/dL High 74-106 Panel (315)- - BUN 17 mg/dL Normal 7-18 Creatinine 0.8 mg/dL Normal 0.6-1.3 Glom Filtration Rate, Estimate >60 mL/min >60 If >60 mL/min >60 25 BUN/Creat 21.2 ratio Sodium 137 mmol/L Normal 136-145 Potassium 4.5 mmol/L Normal 3.5-5.1 Chloride 104 mmol/L Normal 98-107 Carbon Dioxide 26 mmol/L Normal 21-32 Anion Gap 7 mEq/L Low 8-16 Calcium 9.0 mg/dL Normal 8.5-10.1 Total Protein 7.9 g/dL Normal 6.4-8.2 Albumin 3.7 g/dL Normal 3.4-5.0 Globulin 4.2 g/dL Normal 1.9-4.3 Alb/Glob 0.9 ratio Bilirubin,Total 0.3 mg/dL Normal 0.2-1.0 Sgot/Ast 16 U/L Normal 15-37 SGPT/Alt 30 U/L Normal 12-78 Alkaline Phosphatase 75 U/L Normal 45-117 1 in 2 weeks letter, refills adis 2 Updated reference range on new analyzer 3 Updated reference range on new analyzer 4 Updated reference range 12-18-2018 5 Concerning GFR Guidelines for Americans: Normal function or mild renal disease, if clinically at risk: >/= 60 mL/min Moderately decreased: 30-59 Severely decreased: 15-29 Renal failure: <15 There is reduced accuracy above 60ml/min/1.73 m squared, but the numeric value may be clinically useful in the near 60 range 6 Concerning GFR Guidelines: Normal function or mild renal disease, if clinically at risk: >/= 60 mL/min Moderately decreased: 30-59 Severely decreased: 15-29 Renal failure: <15 There is reduced accuracy above 60ml/min/1.73 m squared, but the numeric value may be clinically useful in the near 60 range Glomerular Filtration Rate (GFR) is estimated based on the CKD-EPI equation, which assumes a steady state for creatinine as recommended by the National Kidney Disease Education Program in conjunction with the National Institutes of Health and the National Kidney Foundation. Clinical conditions in which it may be necessary to measure GFR by using clearance methods include extremes of age and body size, severe malnutrition or obesity, diseases of skeletal muscle, paraplegia or quadriplegia, vegetarian diet, rapidly changing kidney function, and calculation of the dose of potentially toxic drugs that are excreted by the kidneys. 7 Updated Reference Range -2017 8 NO ORDER HERE 9 Elevated levels of HbA1c suggest the need for more aggressive treatment of glycemia. The [place] [employer] recommends that a primary goal of therapy should be a HbA1c of <7% and that physicians should re-evaluate the treatment regimen in patients with HbA1c values consistently >8%. 10 Note: Persistent reduction for 3 months or more in an eGFR <60 mL/min/1.73 m2 defines CKD. Patients with eGFR values >/=60 mL/min/1.73 m2 may also have CKD if evidence of persistent proteinuria is present. The original MDRD equation for estimated GFR is not valid for patients less than 18 years of age. Additional information may be found at www.kdoqi.org. 11 Values below the stated reference ranges of AST and ALT can be seen in normal populations. Clinical correlation is suggested. 12 Reference Guidelines*: Desirable: ........... < 200 mg/dL Borderline High: ..... 200-239 mg/dL High: ................ >= 240 mg/dL * The National Cholesterol Education Program (NCEP) 13 Reference Guidelines*: Normal: ............. < 150 mg/dL Borderline High: .... 150-199 mg/dL High: ............... 200-499 mg/dL Very High: .......... > 500 mg/dL * Source: National Cholesterol Education Program (NCEP) 14 Reference Guidelines*: Low HDL: ..... < 40 mg/dL Normal: ..... 40-60 mg/dL Desirable: ... > 60 mg/dL *The National Cholesterol Education Program(NCEP) 15 Reference Guidelines*: Optimal:........... <100 mg/dL Near Optimal....... 100-129 mg/dL Borderline High.... 130-159 mg/dL High............... 160-189 mg/dL Very High.......... >=190 mg/dL * Source: National Cholesterol Education Program (NCEP) 16 E11.42 E78.2 I10 E83.42 R42 17 Elevated levels of HbA1c suggest the need for more aggressive treatment of glycemia. The [place] [employer] recommends that a primary goal of therapy should be a HbA1c of <7% and that physicians should re-evaluate the treatment regimen in patients with HbA1c values consistently >8%. 18 Note: Persistent reduction for 3 months or more in an eGFR <60 mL/min/1.73 m2 defines CKD. Patients with eGFR values >/=60 mL/min/1.73 m2 may also have CKD if evidence of persistent proteinuria is present. The original MDRD equation for estimated GFR is not valid for patients less than 18 years of age. Additional information may be found at www.kdoqi.org. 19 Reference Guidelines*: Desirable: ........... < 200 mg/dL Borderline High: ..... 200-239 mg/dL High: ................ >= 240 mg/dL * The National Cholesterol Education Program (NCEP) 20 Reference Guidelines*: Normal: ............. < 150 mg/dL Borderline High: .... 150-199 mg/dL High: ............... 200-499 mg/dL Very High: .......... > 500 mg/dL * Source: National Cholesterol Education Program (NCEP) 21 Reference Guidelines*: Low HDL: ..... < 40 mg/dL Normal: ..... 40-60 mg/dL Desirable: ... > 60 mg/dL *The National Cholesterol Education Program(NCEP) 22 Reference Guidelines*: Optimal:........... <100 mg/dL Near Optimal....... 100-129 mg/dL Borderline High.... 130-159 mg/dL High............... 160-189 mg/dL Very High.......... >=190 mg/dL * Source: National Cholesterol Education Program (NCEP) 23 E11.42 24 Elevated levels of HbA1c suggest the need for more aggressive treatment of glycemia. The [place] [employer] recommends that a primary goal of therapy should be a HbA1c of <7% and that physicians should re-evaluate the treatment regimen in patients with HbA1c values consistently >8%. 25 Note: Persistent reduction for 3 months or more in an eGFR <60 mL/min/1.73 m2 defines CKD. Patients with eGFR values >/=60 mL/min/1.73 m2 may also have CKD if evidence of persistent proteinuria is present. The original MDRD equation for estimated GFR is not valid for patients less than 18 years of age. Additional information may be found at www.kdoqi.org. Procedures Date Code Description Status 01/31/2018 48191160 Colonoscopy Completed 08/20/2014 [id number] Diabetic Foot Exam Completed 02/23/2014 [id number] Diabetic Retinal Eye Exam Completed Medical Devices Description No Information Available Encounters Type Date Location Provider Dx Diagnosis Office Visit 06/19/2019 [facility] Jessie Salguero, E11.42 Type 2 diabetes mellitus 9:15a with diabetic polyneuropathy I10 Essential (primary) hypertension E83.42 Hypomagnesemia E78.2 Mixed hyperlipidemia I25.10 Athscl heart disease of [place] coronary artery w/o ang pctrs I71.2 Thoracic aortic aneurysm, without rupture J44.9 Chronic obstructive pulmonary disease, unspecified I65.23 Occlusion and stenosis of bilateral carotid arteries I73.9 Peripheral vascular disease, unspecified L52 Erythema nodosum G47.30 Sleep apnea, unspecified K21.9 Gastro-esophageal reflux disease without esophagitis M51.06 Intervertebral disc disorders with myelopathy, lumbar region M50.020 Cerv disc disord with myelpath, mid-cervical rgn, unsp level I48.0 Paroxysmal atrial fibrillation N40.1 Benign prostatic hyperplasia with lower urinary tract symp E66.9 Obesity, unspecified Z68.33 Body mass index (BMI) 33.0-33.9, adult Office Visit 04/02/2019 8:45a [facility] Jessie Salguero MD E11.42 Type 2 diabetes mellitus with diabetic polyneuropathy I10 Essential (primary) hypertension E83.42 Hypomagnesemia E78.2 Mixed hyperlipidemia I25.10 Athscl heart disease of [place] coronary artery w/o ang pctrs I71.2 Thoracic aortic aneurysm, without rupture J44.9 Chronic obstructive pulmonary disease, unspecified I65.23 Occlusion and stenosis of bilateral carotid arteries I73.9 Peripheral vascular disease, unspecified L52 Erythema nodosum G47.30 Sleep apnea, unspecified K21.9 Gastro-esophageal reflux disease without esophagitis M51.06 Intervertebral disc disorders with myelopathy, lumbar region M50.020 Cerv disc disord with myelpath, mid-cervical rgn, unsp level I48.0 Paroxysmal atrial fibrillation N40.1 Benign prostatic hyperplasia with lower urinary tract symp E66.9 Obesity, unspecified R25.2 Cramp and spasm D48.5 Neoplasm of uncertain behavior of skin Z68.33 Body mass index (BMI) 33.0-33.9, adult Office Visit 02/21/2019 8:45a [facility] Jessie Salguero MD I10 Essential ( primary) hypertension R42 Dizziness and giddiness E11.42 Type 2 diabetes mellitus with diabetic polyneuropathy E78.2 Mixed hyperlipidemia I25.10 Athscl heart disease of [place] coronary artery w/o ang pctrs I71.2 Thoracic aortic aneurysm, without rupture J44.9 Chronic obstructive pulmonary disease, unspecified I65.23 Occlusion and stenosis of bilateral carotid arteries L52 Erythema nodosum I73.9 Peripheral vascular disease, unspecified G47.30 Sleep apnea, unspecified K21.9 Gastro-esophageal reflux disease without esophagitis M51.06 Intervertebral disc disorders with myelopathy, lumbar region M50.020 Cerv disc disord with myelpath, mid-cervical rgn, unsp level I48.0 Paroxysmal atrial fibrillation E83.42 Hypomagnesemia N40.1 Benign prostatic hyperplasia with lower urinary tract symp E66.9 Obesity, unspecified Z68.32 Body mass index (BMI) 32.0-32.9, adult Assessments Date Code Description Provider 08/07/2019 D35.02 Benign neoplasm of LEFT adrenal gland Jessie Salguero MD 08/07/2019 N28.1 Cyst of kidney, acquired Jessie Salguero MD 08/07/2019 E66.9 Obesity, unspecified Jessie Salguero MD 08/07/2019 M79.606 Pain in leg, unspecified Jessie Salguero MD 08/07/2019 M16.0 Bilateral primary osteoarthritis of hip Jessie Salguero MD 08/07/2019 Z68.33 Body mass index (BMI) 33.0-33.9, adult Jessie Salguero MD 07/03/2019 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 07/03/2019 E11.42 Type 2 diabetes mellitus with diabetic Schedule, Laboratory polyneuropathy 07/03/2019 E11.42 Type 2 diabetes mellitus with diabetic [facility] polyneuropathy 06/19/2019 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 06/19/2019 I10 Essential (primary) hypertension Jessie Salguero MD 06/19/2019 E83.42 Hypomagnesemia Jessie Salguero MD 06/19/2019 E78.2 Mixed hyperlipidemia Jessie Salguero MD 06/19/2019 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 06/19/2019 I71.2 Thoracic aortic aneurysm, without rupture Jessie Salguero MD 06/19/2019 J44.9 Chronic obstructive pulmonary disease, Jessie Salguero MD unspecified 06/19/2019 I65.23 Occlusion and stenosis of bilateral carotid Jessie Salguero MD arteries 06/19/2019 I73.9 Peripheral vascular disease, unspecified Jessie Salguero MD 06/19/2019 L52 Erythema nodosum Jessie Salguero MD 06/19/2019 G47.30 Sleep apnea, unspecified Jessie Salguero MD 06/19/2019 K21.9 Gastro-esophageal reflux disease without Jessie Salguero MD esophagitis 06/19/2019 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, lumbar region 06/19/2019 M50.020 Cervical disc disorder with myelopathy, Jessie Salguero MD mid-cervical region, 06/19/2019 I48.0 Paroxysmal atrial fibrillation Jessie Salguero MD 06/19/2019 N40.1 Benign prostatic hyperplasia with lower Jessie Salguero MD urinary tract sympto 06/19/2019 E66.9 Obesity, unspecified Jessie Salguero MD 06/19/2019 Z68.33 Body mass index (BMI) 33.0-33.9, adult Jessie Salguero MD 04/02/2019 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 04/02/2019 I10 Essential (primary) hypertension Jessie Salguero MD 04/02/2019 E83.42 Hypomagnesemia Jessie Salguero MD 04/02/2019 E78.2 Mixed hyperlipidemia Jessie Salguero MD 04/02/2019 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 04/02/2019 I71.2 Thoracic aortic aneurysm, without rupture Jessie Salguero MD 04/02/2019 J44.9 Chronic obstructive pulmonary disease, Jessie Salguero MD unspecified 04/02/2019 I65.23 Occlusion and stenosis of bilateral carotid Jessie Salguero MD arteries 04/02/2019 I73.9 Peripheral vascular disease, unspecified Jessie Salguero MD 04/02/2019 L52 Erythema nodosum Jessie Salguero MD 04/02/2019 G47.30 Sleep apnea, unspecified Jessie Salguero MD 04/02/2019 K21.9 Gastro-esophageal reflux disease without Jessie Salguero MD esophagitis 04/02/2019 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, lumbar region 04/02/2019 M50.020 Cervical disc disorder with myelopathy, Jessie Salguero MD mid-cervical region, 04/02/2019 I48.0 Paroxysmal atrial fibrillation Jessie Salguero MD 04/02/2019 N40.1 Benign prostatic hyperplasia with lower Jessie Salguero MD urinary tract sympto 04/02/2019 E66.9 Obesity, unspecified Jessie Salguero MD 04/02/2019 R25.2 Cramp and spasm Jessie Salguero MD 04/02/2019 D48.5 Neoplasm of uncertain behavior of skin Jessie Salguero MD 04/02/2019 Z68.33 Body mass index (BMI) 33.0-33.9, adult Jessie Salguero MD 02/21/2019 I10 Essential (primary) hypertension Jessie Salguero MD 02/21/2019 R42 Dizziness and giddiness Jessie Salguero MD 02/21/2019 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 02/21/2019 E78.2 Mixed hyperlipidemia Jessie Salguero MD 02/21/2019 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 02/21/2019 I71.2 Thoracic aortic aneurysm, without rupture Jessie Salguero MD 02/21/2019 J44.9 Chronic obstructive pulmonary disease, Jessie Salguero MD unspecified 02/21/2019 I65.23 Occlusion and stenosis of bilateral carotid Jessie Salguero MD arteries 02/21/2019 L52 Erythema nodosum Jessie Salguero MD 02/21/2019 I73.9 Peripheral vascular disease, unspecified Jessie Salguero MD 02/21/2019 G47.30 Sleep apnea, unspecified Jessie Salguero MD 02/21/2019 K21.9 Gastro-esophageal reflux disease without Jessie Salguero MD esophagitis 02/21/2019 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, lumbar region 02/21/2019 M50.020 Cervical disc disorder with myelopathy, Jessie Salguero MD mid-cervical region, 02/21/2019 I48.0 Paroxysmal atrial fibrillation Jessie Salguero MD 02/21/2019 E83.42 Hypomagnesemia Jessie Salguero MD 02/21/2019 N40.1 Benign prostatic hyperplasia with lower Jessie Salguero MD urinary tract sympto 02/21/2019 E66.9 Obesity, unspecified Jessie Salguero MD 02/21/2019 Z68.32 Body mass index (BMI) 32.0-32.9, adult Jessie Salguero MD Plan of Treatment Future Appointment(s):09/09/2019 8:30 am - Jessie Salguero MD at [facility]2018 - Jessie Salguero, MDD35.02 Benign neoplasm of LEFT adrenal glandNew Xrays :Ultrasound Abd Limited, Scheduled: 08/12/19Ultrasound Kidney, Scheduled: Comments:pt iwth known adrenal adenoma on prior CT scanswith request for eval for kidney cysts, will assess the adenoma tooFollow up:schedule US soon, try to have him see ortho within 2-3 weeks; next visit as njrukhwD06.1 Cyst of kidney, acquiredNew Xrays:Ultrasound Abd Limited, Scheduled: 08/12/19Ultrasound Kidney, Scheduled: 08/12/19Comments:incidental kidney cysts seen on recent MRIobtain US to [id number] Obesity, unspecifiedComments:continue to work on diet, exercise , weight lossM79.606 Pain in leg, unspecifiedComments:back vs hip pain sourceFollow up:Followup:. (Follow up)M16.0 Bilateral primary osteoarthritis of hipNew Medication:Diclofenac Sodium 1 % - 4gm to groin/hip joint bilateral up to 4 times dailyComments:severe arthritis on xraysexam supports that with stiffness and limited rom recommend consult to ortho for steroid injections, possible hip replacement. I recommend the hip injections to help sort out if source is back or hips. continue moist heat, coldtylenol 1000mg 3 times a day continues on gabapentin for neuropathic pain and duloxetine no narcotics due to gabapentin use. he tried and failed lidocaine patch trial diclofenac gel, 4gm to hip -put on the groin area, up to 4 times daily, cautioned this is nsaid so carries kidney, liver, cardiovascular , gi risks as well but less as it's going throughthe skinReferral:Cory Guzman MD,Z68.33 Body mass index (BMI) 33.0-33.9, adultComments:recommend reduced calorie diet, regular exercise and weight loss Functional Status Description No Information Available Mental Status Description No Information Available Referrals Refer to Dr Reason for Referral Status Appt Date Cory Guzman MD bilateral hip arthritis on xrays, severe, with Scheduled 01/2020 severely limited rom, also has severe degenerative disc disase with mult back surgeries. recently with latearl hip to groin pain, severe, not controlled with supportive measure or PT. Please eval for hip injections, he would consider hip replacement would need cardiology clearance ( Dr Starks) contacted Dr Ying office and they sched pt first avaliable , with Dr Pickard on 08/25/19 and called and informed pt and also informed would need xrays and disc of mri 08/[address] [place] [address] April Christine MD left upper chest soft tissue mass 10cm needs Closed biopsy, I ordered US faxed forms 04/02/19 js Confirmed with patient date and time of appt 04/02/19 [id number] [facility] [address] [place] [address] [phone]
--- OUTSIDE RECORDS SUMMARY | 2019-09-23 07:50 | XMS REPORT | Continuity of Care Document ---
:1945 Author Organization [address] [place] [address] [place] [address] Phone Care Team Providers Name Role Phone YAMILKA MCGOWAN MD Unavailable Unavailable Allergies, Adverse Reactions, Alerts Substance Reaction Status No Known Drug Allergies Active Medications Medication Instructions Dosage Effective Dates (start - stop) Status Comments Drug Treatment Unknown Problems Condition Effective Dates (start - stop) Clinical Status Unknown Procedures Procedure Date Procedure Unknown Results Test Name Date and Time Measure Units Reference Range Abnormal Flag Status Comments Unknown Encounters Encounter Practice Location Reason(s) Diagnoses Date Provider Providers Description For Visit Copied on Encounter [address] [place] [address] Physician [facility] -[address], [place], [place], [address] [place] [address], tel:[phone] tel:[phone] [place] [address] GARCIA [facility] -[address], [place], [place], [facility], [address]. tel:[phone] tel:[phone] Family History Family Member Diagnosis Age At Onset Unknown Immunizations Vaccine Date Status Comments Immunization Unknown Payers Payer name Insurance type Covered democrat ID Authorization(s) Unknown Social History Type Description Quantity Date Captured Comments Unknown Vital Signs Date / Height Weight BMI Pulse Blood Temperature Respiratory Body Head BMI Time: Rate Pressure Rate Surface Circumference percentile Area Unknown Chief Complaint And Reason For Visit No information Reason For Referral Reason For Referral Unknown Plan Of Care Date Type Action Status Appointment MARAL VUONG Date Type Problem Goal Intervention Status Start Date Unknown History Of Present Illness Encounter Date Complaint History Of Present Illness No information Functional Status Encounter Date Functional Assessment Cognitive Assessment Unknown Medications Administered Medication Instructions Dosage Effective Dates (start - stop) Status Comments Drug Treatment Unknown Instructions Date Instruction Additional Information Unknown
--- OUTSIDE RECORDS SUMMARY | 2019-09-23 07:50 | XMS REPORT | Continuity of Care Document ---
:1945 Author Organization [address] [place] [address] [place] [address] Phone Care Team Providers Name Role Phone BEE BIRD MD Unavailable Unavailable Allergies, Adverse Reactions, Alerts [...] Providers Description For Visit Copied on Encounter [address] [place] [address] Physician BIRD [facility], Services BEE. [address] [facility], [address]. [place], [place], tel:[phone], [place] [phone] tel:[phone] [place] [address] [facility] [address] [place], [address], [place] [address]. tel:[phone] tel:[phone] Family History Family Member Diagnosis Age At [...]
--- OUTSIDE RECORDS SUMMARY | 2019-09-23 07:50 | XMS REPORT | Continuity of Care Document ---
:1945 External Reference #:[id number] Demographics Address [address] [place] [address] Home Phone [phone] Mobile Phone [phone] Email Address Preferred Language en Marital Status Not or Quaker Affiliation Unknown Race White Ethnic Group Not or Author Name Jessie Salguero MD Address [address] [place] [address] Care Team Providers Name Role Phone Igor Starks MD - Specialist Care Team Information Case Managers [phone] - Pain Medicine Care Team Information Case Managers [facility] - Pain Care Team Information Case Managers Medicine Jessie Salguero MD - Family Care Team Information Case Managers [phone] Anna Marie Sanchez - Neurology Care Team Information Case Managers [phone] Nehemiah Hubbard MD - Ophthalmology Care Team Information Case Managers Cory Guzman MD - Orthopaedic Surgery Care Team Information Case Managers [phone] MD Chely, Sg - Nephrology Care Team Information Case Managers [phone] Problems Active Problems Provider Date Atrial fibrillation [...] is a former smoked age 15 to 1978, End: 05/20/78 smoker age about 33, at age 19 up to 1ppd to 3ppd until quit at age 33; Reviewed 11/09/16 and not eligible for lung cancer screening based on history over 15 years ago quit [facility] [place] Document: 11/09/16 - Followup: 90 Days, CPX Male Recreational Drug Use Denies Drug Use Smoking Status Reviewed: Patient is a former smoked age 15 to 1978, 11/19/18 smoker age about 33, at age 19 up to 1ppd to 3ppd until quit at age 33; Reviewed 11/09/16 and not eligible for lung cancer screening based on history over 15 years ago quit [facility] [place] Document: 11/09/16 - Followup: 90 Days, CPX Male Exercise Type/Frequency Exercises regularly Exercises regularly, stafionary bike, golf, walk Allergies, Adverse Reactions, Alerts Description No Known Drug Allergies Medications Active Medications SIG Qnty Indications Ordering Provider Date Jardiance 1 by mouth daily 90tabs E11.42 Jessie Salguero, 06/19/2019 10mg Tablets in the morning Isosorbide 1 by mouth every 90tabs I25.10 Jessie Salguero, 07/18/2018 Mononitrate ER day 60mg Tablets ER 24HR Duloxetine HCL 1 by mouth every 90caps E11.42 Jessie Salguero, 03/21/2018 60mg day MD Kimberlyn Alston M51.06 M50.020 Freestyle Lite Blood check [...] daily 400(241.3mg) mg Tablets Bipap G47.30 Hunter Resendiz MD 10/13/2015 Device Freestyle Lite use to test daily 300units Jessie Salguero MD 11/11/2014 Na and as needed Test [id number] Freestyle Lancets check daily and 100units E11.42 Jessie Salguero MD 02/2015 as [place] [facility] [place] L[place] Test test daily and as [...] 04/20/2011 5mg Tablets day 30min before meal before dinner Coenzyme Q10 1 po daily E78.2 Jessie [...] Hyclate 1 by mouth by L52 April Christine 50mg mouth once daily, Capsules twice daily summer Fish Oil Double 1 by mouth twice Unknown Strength daily 1200mg Capsules Atorvastatin Calcium take 1 tablet 90tabs E78.2 Jessie Salguero MD 10mg daily Tablets Benzaclin wash and dry face Unknown 1-5% Gel then apply qd Vitamin D3 Gummies 4 by mouth every Unknown Adult day 1000Unit Chewtabs History Medications Diclofenac Sodium 4gm to groin/hip 300gm M16.0 Jessie Salguero, 2018 - joint bilateral 09/09/2019 1% Gel up to 4 times daily Immunizations CPT Code Status Date Vaccine Reaction Lot # [id number] Given 04/28/2019 Influenza Vaccine, Inactivated, Subunit, Adjuvanted, For Im Q2039 Given 04/26/2018 Flu Vaccine NOS GIVEN ATPHARMAC[facility] [id number] Given 04/26/2018 Prevnar 13 Pneumococal Conjugate GIVEN AT PHARMACY Vaccine 77724 Given 03/06/2018 Shingrix (Shingles) Zoster [facility] Vaccine HZV, Recombinant, Subunit, Adj 93458 Given 01/02/2018 Shingrix (Shingles) Zoster Vaccine HZV, Recombinant, Subunit, Adj 72882 Given 04/24/2017 Influenza Virus Vaccine,Quadrivalent,Split,Prese rv Free, 0.5mL,Im 10043 Given 04/12/2016 Fluzone Highdose Age 65 And Over Preservative & Antibiotic Free 31231 Given 10/21/2015 Pneumococcal 23 Immunization [id number] Adult Or Immunosuppressed Patient Q2035 Given 04/01/2015 Afluria Imunization 66134 Given 12/30/2014 Tetanus And Diptheria Toxoid 7 r1024ly Years And Older Preserv Free 03365 Given 10/06/2014 Prevnar 13 Pneumococal Conjugate [id number] Vaccine 23425 Given 04/16/2014 Fluzone Highdose Age 65 And Over Preservative & Antibiotic Free 07561 Given 04/16/2014 Fluzone Highdose Age 65 And Over Preservative & Antibiotic Free 17319 Given 05/13/2013 Afluria Or Fluvirin Flu Vac Intramuscular 22583 Given 12/12/2012 Zoster (Zostavax) 15416 Given 04/09/2012 Afluria Or Fluvirin Flu Vac Intramuscular 06828 Given 04/20/2011 Afluria Or Fluvirin Flu Vac Intramuscular 44360 Given 08/05/2009 Administration Swine Flu Vaccine H1N1 22889 Given 05/05/2009 Afluria Or Fluvirin Flu Vac Intramuscular 32074 Given 06/15/2008 Afluria Or Fluvirin Flu Vac Intramuscular 19895 Given 07/10/2005 Pneumococcal 23 Immunization Adult Or Immunosuppressed Patient 63836 Given 12/11/2004 Immunization Td 7 Yrs Or Older 46498 Given 08/20/2002 Tetanus And Diptheria Toxoid 7 Years And Older Preserv Free 24790 Given 05/17/2000 Afluria Or Fluvirin Flu Vac Intramuscular Q2039 Refused 04/02/2019 Flu Vaccine NOS WILL GET IN FALL Vital Signs Date Vital Result Comment 09/09/2019 8:20am Weight 240.00 lb Heart Rate 60 /min BP Systolic 120 mmHg BP Diastolic 68 mmHg Respiratory Rate 18 /min Height 70.5 inches 5'10.50" O2 % BldC Oximetry 98 % ra BMI (Body Mass Index) 33.9 kg/m2 08/07/2019 11:39am Weight 240.00 lb Heart Rate 56 /min BP Systolic 160 mmHg BP Diastolic 84 mmHg Respiratory Rate 20 /min Height 70.5 inches 5'10.50" O2 % BldC Oximetry 98 % BMI (Body Mass Index) 33.9 kg/m2 Results Test Acquired Facility Test Result H/L Range Note Date Glycohemoglobin 09/02/2019 [facility] Glycohemoglobin 7.5 % High 4.2-6.3 1, 2 A1c (315)- - (A1c) eAG 169 mg/dL Comprehensive Metabolic 09/02/2019 [facility] Glucose 178 mg/dL High 74-106 Panel (315)- - BUN 21 mg/dL High 7-18 Creatinine 0.9 mg/dL Normal 0.6-1.3 Glom Filtration Rate, Estimate >60 mL/min >60 If >60 mL/min >60 3 BUN/Creat 23.3 ratio Sodium 138 mmol/L Normal 136-145 Potassium 4.5 mmol/L Normal 3.5-5.1 Chloride 104 mmol/L Normal 98-107 Carbon Dioxide 28 mmol/L Normal 21-32 Anion Gap 6 mEq/L Low 8-16 Calcium 8.7 mg/dL Normal 8.5-10.1 Total Protein 7.9 g/dL Normal 6.4-8.2 Albumin 3.7 g/dL Normal 3.4-5.0 Globulin 4.2 g/dL Normal 1.9-4.3 Alb/Glob 0.9 ratio Bilirubin,Total 0.4 mg/dL Normal 0.2-1.0 Sgot/Ast 21 U/L Normal 15-37 SGPT/Alt 42 U/L Normal 12-78 Alkaline Phosphatase 76 U/L Normal 45-117 LDL Cholesterol 09/02/2019 [facility] Cholesterol 115 mg/ dL <200 4 Profile (315)- - Triglycerides 109 mg/dL <150 5 HDL Cholesterol 35 mg/dL Low >40 6 LDL-Cholesterol 58 mg/dL < 100 7 Laboratory test finding 09/02/2019 [facility] CK 94 U/L Normal 39-308 (315)- - Magnesium 2.3 mg/dL Normal 1.6-2.6 Basic (BMP) 07/03/2019 [facility] Sodium 137 mmol/L 135-146 8, 9 Potassium 4.6 mmol/L 3.5-5.2 Chloride# 101 mmol/L 97-110 10 Carbon Dioxide 28 mmol/L 24-34 Glucose 119 mg/dL High 70-105 BUN 17 mg/dL 6-26 Creatinine 0.8 mg/dL 0.5-1.4 Calcium 9.5 mg/dL 8.5-10.5 11 Female Egfr 79 >60 12 Male Egfr 91 >60 13 Anion Gap 8 mmol/L 5-15 14 Glycohemoglobin 06/16/2019 [facility] Glycohemoglobin 7.7 % High 4.2-6.3 15, 16 A1c (315)- - (A1c) eAG 174 mg/dL Comprehensive Metabolic 06/16/2019 [facility] Glucose 223 mg/dL High 74-106 Panel (315)- - BUN 20 mg/dL High 7-18 Creatinine 1.0 mg/dL Normal 0.6-1.3 Glom Filtration Rate, Estimate >60 mL/min >60 If >60 mL/min >60 17 BUN/Creat 20.0 ratio Sodium 137 mmol/L Normal [...] Normal 0.2-1.0 Sgot/Ast 14 U/L Low 15-37 18 SGPT/Alt 35 U/L Normal 12-78 Alkaline Phosphatase 70 U/L Normal 45-117 LDL Cholesterol 06/16/2019 [facility] Cholesterol 117 mg/ dL <200 19 Profile (315)- - Triglycerides 211 mg/dL High <150 20 HDL Cholesterol 36 mg/dL Low >40 21 LDL-Cholesterol 39 mg/dL < 100 22 Laboratory test finding 06/16/2019 [facility] CK 66 U/L Normal 39-308 (315)- - Magnesium 2.2 mg/dL Normal 1.8-2.4 Glycohemoglobin 03/28/2019 [facility] Glycohemoglobin 7.1 % High 4.2-6.3 23, 24 A1c (315)- - (A1c) eAG 157 mg/dL Comprehensive Metabolic 03/28/2019 [facility] Glucose 168 mg/dL High 74-106 Panel (315)- - BUN 16 mg/dL Normal 7-18 Creatinine 0.8 mg/dL Normal 0.6-1.3 Glom Filtration Rate, Estimate >60 mL/min >60 If >60 mL/min >60 25 BUN/Creat 20.0 ratio Sodium 137 mmol/L Normal [...] 87 U/L Normal 45-117 LDL Cholesterol 03/28/2019 [facility] Cholesterol 114 mg/ dL <200 26 Profile (315)- - Triglycerides 89 mg/dL <150 27 HDL Cholesterol 42 mg/dL >40 28 LDL-Cholesterol 54 mg/dL < 100 29 Laboratory test finding 03/28/2019 [facility] CK 105 U/L Normal 39-308 (315)- - Magnesium 2.0 mg/dL Normal 1.8-2.4 CBS W/Automated 03/28/2019 [facility] White Blood 6.6 K/ uL Normal 3.4-10.5 [...] 33.0-73.0 Lymph % 21.3 % Normal 20.0-42.0 [place] % 10.5 % High 0.0-10.0 Eo% 1.4 % Normal 0.0-6.6 Bas% 0.5 % Normal 0.0-1.1 Immature Grans 0.6 % Normal 0.0-5.0 NRBC % 0.0 /100WBC < 10/ 100 WBC Neut# 4.32 K/uL Normal 1.8-7.0 Lymph # 1.40 K/uL Normal 1.0-4.0 [place] # 0.69 K/uL Normal 0.0-0.8 Eos # 0.09 K/uL Normal 0.0-0.5 Baso # 0.03 K/uL Normal 0.0-0.1 Immature Grans Absolute 0.04 K/uL NR # 0.00 K/uL 1 E11.42 E78.2 E83.42 2 Elevated levels of HbA1c suggest the need for more aggressive treatment of glycemia. The [place] [employer] recommends that a primary goal of therapy should be a HbA1c of <7% and that physicians should re-evaluate the treatment regimen in patients with HbA1c values consistently >8%. 3 Note: Persistent reduction for 3 months or more in an eGFR <60 mL/min/1.73 m2 defines CKD. Patients with eGFR values >/=60 mL/min/1.73 m2 may also have CKD if evidence of persistent proteinuria is present. The original MDRD equation for estimated GFR is not valid for patients less than 18 years of age. Additional information may be found at www.kdoqi.org. 4 Reference Guidelines*: Desirable: ........... < 200 mg/dL Borderline High: ..... 200-239 mg/dL High: ................ >= 240 mg/dL * The National Cholesterol Education Program (NCEP) 5 Reference Guidelines*: Normal: ............. < 150 mg/dL Borderline High: .... 150-199 mg/dL High: ............... 200-499 mg/dL Very High: .......... > 500 mg/dL * Source: National Cholesterol Education Program (NCEP) 6 Reference Guidelines*: Low HDL: ..... < 40 mg/dL Normal: ..... 40-60 mg/dL Desirable: ... > 60 mg/dL *The National Cholesterol Education Program(NCEP) 7 Reference Guidelines*: Optimal:........... <100 mg/dL Near Optimal....... 100-129 mg/dL Borderline High.... 130-159 mg/dL High............... 160-189 mg/dL Very High.......... >=190 mg/dL * Source: National Cholesterol Education Program (NCEP) 8 in 2 weeks letter, refills [email or web address] 9 Updated reference range on new analyzer 10 Updated reference range on new analyzer 11 Updated reference range 12-18-2018 12 Concerning GFR Guidelines for Americans: Normal function or mild renal disease, if clinically at risk: >/= 60 mL/min Moderately decreased: 30-59 Severely decreased: 15-29 Renal failure: <15 There is reduced accuracy above 60ml/min/1.73 m squared, but the numeric value may be clinically useful in the near 60 range 13 Concerning GFR Guidelines: Normal function or mild [...] drugs that are excreted by the kidneys. 14 Updated Reference Range 15 NO ORDER HERE 16 Elevated levels of HbA1c suggest the need for more aggressive treatment of glycemia. The [place] [employer] recommends that a primary goal of therapy should be a HbA1c of <7% and that physicians should re-evaluate the treatment regimen in patients with HbA1c values consistently >8%. 17 Note: Persistent reduction for 3 months or more in an eGFR <60 mL/min/1.73 m2 defines CKD. Patients with eGFR values >/=60 mL/min/1.73 m2 may also have CKD if evidence of persistent proteinuria is present. The original MDRD equation for estimated GFR is not valid for patients less than 18 years of age. Additional information may be found at www.kdoqi.org. 18 Values below the stated reference ranges of AST and ALT can be seen in normal populations. Clinical correlation is suggested. 19 Reference Guidelines*: Desirable: ........... < 200 [...] National Cholesterol Education Program (NCEP) 23 E11.42 E78.2 I10 E83.42 R42 24 Elevated levels of HbA1c suggest the need for more aggressive treatment of glycemia. The [place] [employer] recommends that a primary goal [...] Additional information may be found at www.kdoqi.org. 26 Reference Guidelines*: Desirable: ........... < 200 mg/dL Borderline High: ..... 200-239 mg/dL High: ................ >= 240 mg/dL * The National Cholesterol Education Program (NCEP) 27 Reference Guidelines*: Normal: ............. < 150 mg/dL Borderline High: .... 150-199 mg/dL High: ............... 200-499 mg/dL Very High: .......... > 500 mg/dL * Source: National Cholesterol Education Program (NCEP) 28 Reference Guidelines*: Low HDL: ..... < 40 mg/dL Normal: ..... 40-60 mg/dL Desirable: ... > 60 mg/dL *The National Cholesterol Education Program(NCEP) 29 Reference Guidelines*: Optimal:........... <100 mg/dL Near Optimal....... 100-129 mg/dL Borderline High.... 130-159 mg/dL High............... 160-189 mg/dL Very High.......... 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, acquired E66.9 Obesity, unspecified M79.606 Pain in leg, unspecified M16.0 Bilateral primary osteoarthritis of hip Z68.33 Body mass index (BMI) 33.0-33.9, adult Office Visit 06/19/2019 9:15a [facility] Jessie Salguero MD E11.42 Type 2 diabetes mellitus with diabetic polyneuropathy I10 Essential (primary) hypertension E83.42 Hypomagnesemia E78.2 Mixed hyperlipidemia I25.10 Athscl heart disease of [place] coronary artery w/o ang pctrs I71.2 Thoracic [...] (BMI) 33.0-33.9, adult Office Visit 04/02/2019 8:45a [facility] Jessie Salguero MD E11.42 Type 2 diabetes mellitus with diabetic polyneuropathy I10 Essential (primary) hypertension E83.42 Hypomagnesemia E78.2 Mixed hyperlipidemia I25.10 Athscl heart disease of [place] coronary artery w/o ang pctrs I71.2 Thoracic [...] Z68.33 Body mass index (BMI) 33.0-33.9, adult Assessments Date Code Description Provider 09/09/2019 M25.552 Pain in LEFT hip Jessie Salguero MD 09/09/2019 M16.0 Bilateral primary osteoarthritis of hip Jessie Salguero MD 09/09/2019 Z01.818 Encounter for other preprocedural examination Jessie Salguero MD 09/09/2019 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 09/09/2019 I10 Essential (primary) hypertension Jessie Salguero MD 09/09/2019 E78.2 Mixed hyperlipidemia Jessie Salguero MD 09/09/2019 E83.42 Hypomagnesemia Jessie Salguero MD 09/09/2019 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 Salguero MD coronary artery with 09/09/2019 I71.2 Thoracic aortic aneurysm, without rupture Jessie Slaguero MD 09/09/2019 J44.9 Chronic obstructive pulmonary disease, Jessie Salguero MD unspecified 09/09/2019 I65.23 Occlusion and stenosis of bilateral carotid Jessie Salguero MD arteries 09/09/2019 I73.9 Peripheral vascular disease, unspecified Jessie Salguero MD 09/09/2019 G47.30 Sleep apnea, unspecified Jessie Salguero MD 09/09/2019 K21.9 Gastro-esophageal reflux disease without Jessie Salguero MD esophagitis 09/09/2019 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, lumbar region 09/09/2019 M50.020 Cervical disc disorder with myelopathy, Jessie Salguero MD mid-cervical region, 09/09/2019 I48.0 Paroxysmal atrial fibrillation Jessie Salguero MD 09/09/2019 N40.1 Benign prostatic hyperplasia with lower Jessie Salguero MD urinary tract sympto 09/09/2019 E66.9 Obesity, unspecified Jessie Salguero MD 09/09/2019 Z68.33 Body mass index (BMI) 33.0-33.9, adult Jessie Salguero MD 08/07/2019 D35.02 Benign neoplasm of LEFT adrenal [...] MD 06/19/2019 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 Note, pt with multiple lumbar spine surgery history. Anaesthesia should be mindfulFollow up: schedule hosp fu 30min about 10 days after surgery date of 09/23; schedule 30min [facility] nonfasting labs 5 days immcxF10.0 Bilateral primary osteoarthritis of hipComments:severe arthritis on xraysexam supports that with stiffness and limited rom continue moist heat, coldtylenol 1000mg 3 times a day continues on gabapentin for neuropathic pain and duloxetine no narcoticsdue to gabapentin use.Z01.818 Encounter for other preprocedural examinationComments:Pt appears cardiopulmonary stable for proposed surgery. A copy of this note and labs are forwarded to the requesting surgeon. Meds: take all cardiac meds with a sip of water morning of surgerypradaxa last dose nite of 09/20, restart adele post op diabets meds: stop metformin, last dose night of 09/20; resume once kidney funciton is stable post op ; last dose glipizide night of 09/22; last dose jardiance moring of 09/22--restart both with first meal after surgery. ranitidine, tamsulosin, take routinelygabapentin last dose night before surgery, restart post op when stable. Note: pt at risk for post op delerium, keep glasses and hearing aids at bedside, ensure good sleep patterns, dark hosp room at night,minimum interruptions. Avoid hypotension and hypoglycemia. Be mindful of gabapentin effects. CAll me if problems develop. Recommend ov with me within the week of leaving hosp/rehab to reassess medicalconditions.E11.42 Type 2 diabetes mellitus with diabetic polyneuropathyNew Labs:Glycohemoglobin A1c, Ordered: Comprehensive Metabolic Panel, Ordered: 09/09/19Comments:DM--You have adequate control glyco at 7.5. continue glipizide 5mg with dinner, continue [id number] twice daily with meal Continue jardiance 10mg daily in the morning. recommend he increase the exercise best he can, discussed bike peddler and pool use. Please call if there is recurrent hypoglycemia of fingersticks under 80 more than 1 every few weeks or high sugar readings over 150 regularlyDiscussed how to treat low sugars, signs and symptoms . Please bring a copy of your fingerstick readings to every visit. Continue to target hgba1c &lt ; 8Continue to target ldl <70 due to vascular disease and risks. Continue to target blood pressure < 130/80.Please check your feet daily. Pleasesee the optho/eye doc annually and barrel reamer periodically Recommend continued daily exercise and weight loss and see if fs improve. consider water exercise. call if staying over 150 regularly. diabetic peripheral neuropathy, on gabapentin, duloxetine, with continued leg aching, he thinks it's a little worse, not likely meds but is likely disease. Continue the gabapentin, at 1200mg twice daily for ease in dosing. Cont duloxetine 60mg. Improving diabetes control should also help. Continues with [id number] Essential ( primary) hypertensionNew Labs:Magnesium, Ordered: 09/09/19Comments:Htn--BPs appear stable and in good control, reminded goal of BP < 150/90 ideally, per new guidelines for those over age 60. Continue current meds, call when refills needed. Encouraged diet modifiedin fat and no added salt. Encouraged regular exercise of 30 min most days per week. Encouraged pt to continue to monitor BP and call if > 150/90 on a regular basis. Please call if you feel your blood pressure is under 110 systolic and/or causing you symptoms such as dizziness, lightheadedness, or other concerns.E78.2 Mixed hyperlipidemiaNew Labs :LDL Cholesterol Profile, Ordered: 09/09/19CK, Ordered: 09/09/19Magnesium, Ordered: 09/09/19Comments:high choldue to known CAD, there is high cardiovascular riskStatin medications are recommended at high intensity therapy , meaning use of atorvastatin 40 - 80mg or crestor 10 - 20mg. To reduce ldl chol by 30 - 50%. Current medication dosing is not high enough but the ldl is at that target, so no changes are recommendedlow dose aspirin 81mg daily , continueFor lifestyle, we also recommend: Low fat ( under 30gm per day), low chol diet ( under 300mg per day chol)focus on lean meat, nonfat 1% dairy, increased veg and fruit, whole grains weight lossexercise build to at least 30min per day. Reviewed signsand symptoms of cardiovascular disease.E83.42 HypomagnesemiaNew Labs:Magnesium, Ordered: 09/09/19Comments:due to low mag previously continue mag right up to surgery dayI25.10 Atherosclerotic heart disease of [place] coronary artery withNew Labs:CBS W/Automated Diff, Ordered: Comments:CAD--Patient appears stable without symptoms. Advised to continue meds to control risk factors, statin therapy and BP control. Encouraged continued healthy diet modified in fat and cholesterol with regular daily exercise. Call for symptoms of chest pressure, pain tightness, at rest or with exertion, or increasing SOB/developing exercise intolerance. Call for concerns. comanaged with dr Torre71.2 Thoracic aortic aneurysm, without ruptureComments:Ascending aortic aneurysm of 4 cm. found 08/2017 Recommend good control of blood pressure at least under 130/80, better to be under 120/ 80. care per Dr Starks and surgeonseek care if develops chest pain, dizziness, chest pain going into your back, or any new concerns.J44.9 Chronic obstructive pulmonary disease, unspecifiedComments:mild copd based on pfts. former smoker. pt without symptoms, no meds, feels well. please call for development of shortness of breath, wheezing, other concerns.I65.23 Occlusion and stenosis of bilateral carotid arteriesComments:arotid artery diseasecontinue statin therapy and aspirincare with Dr Meena Livingston73.9 Peripheral vascular disease, unspecifiedComments:peripheral vascular disease--Advised pt to work on risk factors withstatin treatment, control of bp and diabetes. Continue current meds.G47.30 Sleep apnea, unspecifiedComments:Pt to continue BIPAP at 17/ to control sleep apnea, last new machine 09/2015 . CAll if has troublewith machine or other issues. Call prn excessive dayt time sleepiness or concerns. dr resendiz ent comanaged Be sure to take with you to hospital, be sure to set up siklkiphO68.9 Gastro-esophageal reflux disease without esophagitisComments:GERD/ esophagitis--Symptoms moderately well controlled on current acid ted therapy. Reminded pt we need to control the symptoms as those symptoms would be signs of gastric acid eroding on the esophagus, which can lead to complications. Call if has heartburn more than 2 - 3 times per week. Pt should take meds to control any break through symptoms. Please be sure to take your acid ted 30minbefore a meal.M51.06 Intervertebral disc disorders with myelopathy, lumbar regionComments:lumbar disc diseaseno flare ups discussed working on mobilty with bike peddlar and pool walking continue treatment as noted. accupuncture as needed care with Dr Montgomery sciatica flares as noted above,continues on gabapentin and duloxetineseek care if severe, if has [id number] Cervical disc disorder with myelopathy, mid-cervical region, I48.0 Paroxysmal atrial fibrillationComments:atrial fibrillation, paroxysmal-- Rate controlled and continue pradaxa therapy. Call for chest pain, shortness of breath, palpitations, swelling or excessive bleeding, or any concerns.Pt to have last dose pradaxa on 09/20 evening, per Dr Starks anticipating surgery 2 morning. Please restart as soon as possible post opN40.1 Benign prostatic hyperplasia with lower urinary tract symptoComments:pt with prostate enlargement and urinary obstructive symptoms. continue tamsulosin, take 30min afterevening meal, with fluids, watch for low bp symptoms such as dizziness over night. 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 booking out until in [place]. kw / [address] [place] [address] [phone] Cory Guzman MD bilateral hip arthritis on [...] xrays and disc of mri 08/07 [address] [place] [address] April Christine MD left upper chest soft tissue mass 10cm needs Closed biopsy, I ordered US faxed forms 04/02/19 js Confirmed with patient date and time of appt 04/02/19 ginette [address] [facility] [address] [place] [address] [phone]
--- OUTSIDE RECORDS SUMMARY | 2019-09-23 07:50 | XMS REPORT | Continuity of Care Document ---
:1945 Author Organization [facility] [place] [address] Phone Care Team Providers Name Role Phone AMOL FLAHERTY MD Unavailable Unavailable Allergies, Adverse Reactions, Alerts [...] Providers Description For Visit Copied on Encounter [address] [place] [address] Pain [facility], 54 Management -2018 AMOL. [address], [place], [address], [place] [address]. tel:[phone] tel:[phone] [place] [address] GARCIA [facility] 59 Neurosurgery -2018 ALFA. [address] [place], [place], [place], [address], [place] [address]. tel:[phone] tel:[phone] Family History Family Member Diagnosis Age At Onset Unknown Immunizations Vaccine Date Status Comments Immunization Unknown Payers Payer name Insurance type Covered republican ID Authorization(s) Medicare [id number] Medicare [id number] He [id number] Social History Type Description Quantity Date Captured [...]
[2019-09-23] MEDS ORDERED: Acetaminophen TAB* 325 MG ONE (08:36)
[2019-09-23] MEDS ORDERED: celeCOXIB CAP* 200 MG ONE (08:36)
[2019-09-23] MEDS ORDERED: Gabapentin CAP(*) 300 MG ONE (08:36)
[2019-09-23] MEDS ORDERED: ceFAZolin 2 GM PREMIX in ORs 2 GM/50 ML BAG ONE (08:37)
[2019-09-23] MEDS ORDERED: fentaNYL* 50 MCG/ML 2 ML VIAL (100 MCG VIAL) ONE ×3 (09:04→13:44)
[2019-09-23 09:44] LABS: Activated Partial Thrombo Time 33.1 seconds (26.0-38.0); INR 1.12 (0.82-1.09)
[2019-09-23] MEDS ORDERED: Midazolam* 1 MG/ML 2 ML VIAL (2 MG) ONE (10:01)
[2019-09-23] MEDS ORDERED: Naloxone* 0.4 MG/ML 1 ML VIAL IV PRN (10:17)
[2019-09-23] MEDS ORDERED: oxyCODONE TAB* 5 MG TAB PO PRN (10:17)
[2019-09-23] MEDS ORDERED: HYDROmorphone INJ1* 1 MG/ML SYRINGE IV PRN (10:17)
[2019-09-23] MEDS ORDERED: Rocuronium* 10 MG/ML VIAL ONE (10:51)
[2019-09-23] MEDS ORDERED: EPHEDrine (Pressors)* 50 MG/ML VIAL ONE (11:44)
[2019-09-23] MEDS ORDERED: Etomidate* 2 MG/ML 10 ML VIAL ONE (11:44)
[2019-09-23] MEDS ORDERED: Ondansetron INJ* 2 MG/ML VIAL ONE ×2 (11:44→13:06)
[2019-09-23] MEDS ORDERED: Propofol* 10 MG/ML 20 ML BTL ONE (11:44)
[2019-09-23] MEDS ORDERED: Glycopyrrolate IV* 0.2 MG/ML 1 ML VIAL ONE (11:44)
[2019-09-23] MEDS ORDERED: Dexamethasone IV* 4 MG/ML 1 ML (4 MG) ONE (11:44)
[2019-09-23] MEDS ORDERED: Lidocaine 2% PF* 10 ML AMP ONE (11:44)
[2019-09-23] MEDS ORDERED: Sugammadex * 200 MG/2 ML VIAL IV PUSH ONE (13:06)
[2019-09-23] MEDS ORDERED: Polyethylene Glycol 3350* 17 GM PACKET PO PRN (13:20)
[2019-09-23] MEDS ORDERED: diPHENhydraMINE PO* 25 MG PO PRN (13:20)
[2019-09-23] MEDS ORDERED: Magnesium Hydroxide LIQ* 30 ML UDC PO PRN (13:20)
[2019-09-23] MEDS ORDERED: Ondansetron ODT TAB* 4 MG PO PRN (13:20)
[2019-09-23] MEDS ORDERED: Cyclobenzaprine TAB* 10 MG PO PRN (13:20)
[2019-09-23] MEDS ORDERED: Morphine INJ* 2 MG/ML 1 ML SYRINGE (TWO MG - NEW SYRINGE VERSION) IV PRN (13:20)
[2019-09-23] MEDS ORDERED: Ondansetron INJ* 2 MG/ML VIAL IV PRN (13:20)
[2019-09-23] MEDS ORDERED: diPHENhydraMINE IV* 50 MG/ML 1 ml VIAL (BENADRYL) IV PRN (13:20)
[2019-09-23] MEDS ORDERED: Ondansetron TAB* 4 MG PO PRN (13:20)
[2019-09-23] MEDS ORDERED: Nitroglycerin TAB 0.4 MG* 0.4 MG TAB SL PRN (13:24)
[2019-09-23] MEDS ORDERED: HYDROmorphone INJ1* 1 MG/ML SYRINGE ONE (13:46)
[2019-09-23] MEDS ORDERED: oxyCODONE TAB* 5 MG TAB ONE (14:19)
--- NOTE | 2019-09-23 14:26 | PN ---
Progress Note - Progress Note Date of Service: 09/23/19 Note: resting in recovery, pain well controlled; able to DF/PF, 2+ DP pulse and intact sensation. dressing c/d/i; hip abduction pillow in place
[2019-09-23] MEDS: Lactated Ringers 1000 ML Bag* 1,000 ML IV SCH (15:28)
[2019-09-23] MEDS ORDERED: Dextrose 50% Syringe 50 ML* 25 GM/50 ML SYRINGE IV PUSH PRN (15:49)
[2019-09-23] MEDS: oxyCODONE/Acetamin 5/325 MG* TAB PO PRN ×2 (17:03→21:09)
[2019-09-23] MEDS: Insulin LISPRO* 1 UNITS UNIT SUBCUT SCH ×2 (17:04→21:26)
[2019-09-23] MEDS: Atenolol TAB* 25 MG PO SCH (17:04)
[2019-09-23] MEDS: Acetaminophen TAB* 325 MG PO SCH (17:06)
--- NOTE | 2019-09-23 18:14 | CONS ---
CONSULTATION REPORT: DATE OF CONSULT: 09/23/19 REQUESTED BY: ENRIQUE Calhoun, with Orthopedic Surgery. ATTENDING PHYSICIAN: Dr. Borrego. REASON FOR CONSULT: Co-Management of medical comorbidities. HISTORY OF PRESENT ILLNESS: Mr. Vuong is a 74-year-old male who today had a left total hip arthroplasty with Dr. 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 He does have an extensive cardiac history. He denies having any episodes of chest pain or having to use his nitro. It was confirmed with him that he last took his Pradaxa on 09/20/19 and per instructions from Orthopedics, continued his aspirin 81 mg but did not take this morning. For diabetic management at home, he takes glipizide, metformin, and Jardiance. He states his glucose levels are often in the 140s. Home management of OREN includes use of BiPAP regularly. He is noted to take doxycycline daily for which he states is in relation to breakouts of folliculitis. He denies any recent breakouts. He denies any recent fevers, chills, unexplained weight loss, visual changes, chest pain, palpitations, unusual swelling, shortness of breath, nausea, vomiting, diarrhea, abdominal pain, difficulty urinating or having bowel movements, rashes, lesions or wounds , headaches, unusual numbness or tingling other than baseline. Hospital Medicine was asked to consult for co-management of this patient's medical comorbidities. PAST MEDICAL HISTORY: 1. CAD. 2. Status post stents x4 to LAD. 3. Cardiac ablation in 2007. 4. Diabetes mellitus type 2. 5. Diabetic neuropathy. 6. OREN. 7. Hyperlipidemia. 8. Hypertension. 9. GERD. 10. Upper back melanoma, status post resection. 11. OA. 12. AFib. 13. Basal cell carcinoma. PAST SURGICAL HISTORY: 1. Right ACL repair in 1996. 2. Right total knee replacement in 2006. 3. Bilateral laminectomy with L3 through L4 fusion in 2010. 4. Carotid artery surgery in January 2019 at [facility]. 5. Vasectomy in 1974. 6. Multiple cervical fusions. HOME MEDICATIONS: 1. Amlodipine besylate 5 mg twice a day. 2. Ammonium lactate lotion 12% apply to feet and legs once a day. 3. Atenolol 25 mg 1 tablet at night. 4. Baby aspirin enteric coated 81 mg 1 tablet in the morning. 5. Cymbalta 60 mg 1 tablet at night. 6. Doxycycline 50 mg 1 capsule twice daily. 7. Enalapril 10 mg 1 tablet twice a day. 8. Flomax 0.4 mg 2 tablets at night. 9. Gabapentin 600 mg 2 capsules twice a day. 10. Glipizide 5 mg 1 tablet at night. 11. Isosorbide ER 60 mg 1 tablet in the morning. 12. Jardiance 10 mg 1 tablet in the morning. 13. Lipitor 10 mg 1 tablet at night. 14. Metformin ER 1000 mg 1 tablet twice a day. 15. NitroQuick sublingual 0.4 mg p.r.n. for chest pain. 16. Pradaxa 150 mg 1 capsule twice a day. 17. Ranitidine 150 mg 1 tablet twice a day. 18. Tikosyn 500 mcg twice daily. 19. Zetia 10 mg 1 tablet at night. 20. Centrum Silver multivitamin 1 tablet in the morning. 21. CoQ10 200 mg 1 tablet at night. 22. Vitamin D 1000 International Units 1 tablet in the morning. 23. Fish oil 1000 mg 1 capsule twice a day. 24. Glucosamine sulfate 1000 mg 1 capsule twice a day. 25. Magnesium 500 mg 1 tablet twice a day. ALLERGIES: No known allergies. FAMILY HISTORY: Mother with a history of NM. Father with a history of NM. Maternal grandmother with a history of stomach cancer. SOCIAL HISTORY: The patient is . He lives with his . They have 3 children. 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 States he quit using tobacco in 1977 for which he smoked up to 3 packs per day for a total of 18 years. He states he also quit using alcohol in 1977. Denies any illicit drug use. REVIEW OF SYSTEMS: A 10-point review of systems was completed. Please see HPI for all pertinent positives and negatives. PHYSICAL EXAM: Constitutional: The patient sitting up in bed with signs of mild discomfort. Last vital signs: Temp 97.2, heart rate 55, BP 153/70, respiratory rate 15, O2 sat 99% on 3 L. HEENT: Normocephalic. Neck: Supple. Cardiovascular: Heart rate regular. S1 and S2 present. Grade 2/6 systolic murmur noted, best heard at right upper sternal border. No rubs or gallops. Respiratory: Lung sounds clear throughout bilaterally. Normal respiratory effort. GI: Bowel sounds x4. Abdomen large, distended, round. Musculoskeletal : Able to plantar and dorsiflex bilaterally. Extremities: No edema. Skin: Incision to left hip covered by dressing, which is clean, dry, and intact. Neuro: Alert and oriented x3. Unable to sense light touch below the knees bilaterally. Psych: Responds appropriately. Normal affect. DIAGNOSTIC STUDIES/LAB DATA: Preoperative EKG shows sinus bradycardia. Preoperative laboratory results from 09/02/19 show hemoglobin A1c 7.5, glucose 178, BUN 21, creatinine 0.9, BUN/creatinine ratio 23.3. Sodium 138, potassium 4.5, chloride 104, carbon dioxide 28, anion gap 6, calcium 8.7, total protein 7.9, albumin 3.7, cholesterol 115, triglycerides 109, HDL 35, LDL 58, magnesium 2.3. Postoperative pelvic x-ray, impression: Status post total left hip replacement surgery with normal alignment noted. ASSESSMENT AND PLAN: Mr. Vuong is a very pleasant 74-year-old male who presented today for an elective left total hip replacement with Dr. Pickard. He has a past medical history significant for coronary artery disease, status post stents x4; cardiac ablation; type 2 diabetes mellitus; hyperlipidemia; hypertension; obstructive sleep apnea; diabetic neuropathy. In light of his many medical comorbidities, Hospitalist Medicine was asked to consult for co- management. 1. Status post left total hip arthroplasty. This was done today with Dr. Pickard. Pain management, bowel regimen, and DVT prophylaxis per Orthopedics. 2. Coronary artery disease. We will continue his usual cardiac medications. Magnesium to be drawn tomorrow along with other usual labs. 3. Hypertension. We will continue usual anti-hypertensive medications and follow routine laboratory workup and trend BPs. 4. Hyperlipidemia. We will continue usual medications. 5. Diabetes mellitus type 2. We will continue usual diabetic medications. Last A1c 7.5. We will order fingersticks a.c. and h.s. as well as add on a lispro sliding scale. 6. Obstructive sleep apnea. No reports of difficult oxygenation from OR or PACU. The patient was on 3 to 4 L of oxygen while in the recovery room. We will continue to follow. The patient will use home BiPAP while in the hospital. 7. FEN: We will continue with consistent carb diet. IV fluids per Orthopedics. 8. Code status: Full code. 9. DVT prophylaxis: Per Orthopedics. DISPOSITION: The patient will be admitted to the short-stay surgical unit. CONDITION: Stable. Thank you for allowing us to participate in the care of this patient. We will follow during this admission. The plan has been discussed with my attending provider, Dr. Borrego, and he agrees with this plan. WILBUR LECHUGA NP [id number]/[facility] #: [id number] MEIR
--- NOTE | 2019-09-23 19:06 | OP ---
Operative Report - Blank - Operative Report Date of Operation: 09/23/19 Note: MARAL MERCADO 1945 Date Of Surgery: 09/23/19 Varsha Pickard MD Channel Layer: Rosa NUNEZ did help throughout the procedure with preparation of the hip, wound retraction, manipulation of the hip, and wound closure. Anesthesiologist: Dr. Whyte Anesthesia Type: General Preoperative Diagnosis: Left severe degenerative osteoarthritis of the hip Postoperative Diagnosis: As above Procedure Performed: Left Total Hip Arthroplasty Complications: None Specimen: Femoral head and acetabular reamings sent to pathology. Hardware used: This is uncemented [place] total hip arthroplasty hardware for the femur a size 6 accolade II with 127 neck angle femoral component, for the acetabulum a size 58F trident II tritanium cluster hole shell, one 20 mm screw and one 15mm screw, for the insert a size 40F trident X3 polyethylene insert, and for the femoral head a size 40 + 0 ceramic biolox V40 femoral head. Brief history/Indication: MARAL MERCADO was known in clinic and had a history of severe left hip pain. He failed conservative treatment with anti- inflammatories, pain pills, intra-articular injections and physical therapy. He elected to undergo left total hip arthroplasty due to continued pain and decreased quality of life. Radiographs showed severe end stage osteoarthritis of the hip with bone on bone contact. Informed consent was obtained from the patient. He understood the risks of surgery included but were not limited to: bleeding, infection, damage to nearby structures, intraoperative fracture, nerve palsy, failure of the hardware, early loosening, stiffness or loss of motion, dislocation, leg length discrepancy, anesthesia complications, stroke, heart attack, blood clot and . He wished to proceed. Intra-Operative findings: Intraoperatively the patient was noted to have severe loss of cartilage of the acetabulum and femoral head. Description of the Procedure: MARAL MERCADO was identified in the preanesthesia unit. His left hip was marked as the correct operative side. Informed consent was signed and placed in the chart. The patient was taken to the operating room and placed under anesthesia without complication. A cruz catheter was placed. The patient was placed on the peg board with all bony prominences well padded. The left lower extremity was prepped and draped in the usual sterile fashion. Preoperative time -out was made to correctly identify the patient, side and site. Appropriate intraoperative antibiotics were given within one hour of incision. A standard posterior incision was made and carried sharply down to the lateral fascia. A new 10 blade was used to make an incision in the fascia in line with the skin incision. A charnley retractor was placed. The piriformis and conjoined tendons were identified and elevated off the posterolateral femur using electrocautery. These were tagged with number 5 Ethibond. Next electrocautery was used to make a posterolateral capsular flap and this was tagged with number 5 Ethibonds. The hip was carefully dislocated. Lesser trochanter to the center of the femoral head was measured at 65 mm. The oscillating saw was used to make the femoral neck cut. The femoral head was carefully removed. The femur was retracted anteriorly and the acetabular retractors were placed. Long-handled knife was used to sharply remove any remaining labrum from the acetabular rim. The acetabulum was sequentially reamed up to a size 58. A bleeding subchondral bone bed was obtained. A trial liner was placed and had excellent fit and stability. A 58F cup with two screws was placed and had excellent stability with appropriate anteversion and abduction angle. A size 40 F polyethylene liner was impacted into the acetabular shell. The liner was checked for stability and was stable. Next attention was turned to preparation of the femoral canal. A canal finder was used to enter the proximal femur. The femoral canal was sequentially broached up to a size 6 femoral broach trial. A trial neck and 40 + 0 trial femoral head was chosen. Lesser trochanter to center of the femoral head measurement was satisfactory. The hip was reduced and taken through a range of motion. The hip was stable in all positions with good soft tissue tension and appropriate leg lengths. The hip was dislocated and all trials were removed. The final implant chosen was a accolade II size 6. This stem was impacted into the femoral canal without difficulty. The stem was stable with appropriate anteversion. The femoral head chosen was a 40 + 0 ceramic head. The head was impacted onto the femoral neck without difficulty. The final lesser trochanter to center of the femoral head measurement was satisfactory. The hip was reduced and taken through a range of motion. The hip was stable in all positions with good soft tissue tension and appropriate leg lengths. The hip was copiously irrigated with sterile saline. The previously tagged capsule and tendons were repaired to the posterolateral femur through two trochanteric drill holes. The lateral fascia layer was closed using number 1 vicryls. The rest of the incision was closed in a layered fashion using 0 and 2-0 vicryls. The skin was closed using 3-0 monocryl suture and Dermabond. Sterile adaptic, 4x4s and paper tape was used to cover the incision. The patients anesthesia was reversed without difficulty. He was taken to the PACU in stable condition. Intended weight-bearing will be as tolerated with posterior hip precautions.
[2019-09-23] MEDS: oxyCODONE TAB* 5 MG TAB PO PRN ×2 (19:09→23:23)
[2019-09-23] MEDS: ceFAZolin 1 GM ADVAN(*) 1 GM in NS 0.9% 50 ML* 50 ML IVPB SCH (20:38)
[2019-09-23] MEDS ORDERED: Dofetilide CAP* 500 MCG PO SCH (21:00)
[2019-09-23] MEDS: Magnesium Oxide TAB* 400 MG PO SCH (21:23)
[2019-09-23] MEDS: amLODIPine TAB* 5 MG PO SCH (21:23)
[2019-09-23] MEDS: Famotidine TAB* 20 MG PO SCH (21:23)
[2019-09-23] MEDS: Enalapril TAB* 5 MG PO SCH (21:23)
[2019-09-23] MEDS: Magnesium Hydroxide LIQ* 30 ML UDC PO SCH (21:23)
[2019-09-23] MEDS: Docusate CAP* 100 MG PO SCH (21:23)
[2019-09-23] MEDS: metFORMIN* 1,000 MG TAB PO SCH (21:24)
[2019-09-23] MEDS: Atorvastatin* 10 MG TAB PO SCH (21:24)
[2019-09-23] MEDS: Ezetimibe TAB* 10 MG PO SCH (21:24)
[2019-09-23] MEDS: DULoxetine DR CAP* 60 MG CAP.DR PO SCH (21:24)
[2019-09-23] MEDS: Tamsulosin CAP* 0.4 MG PO SCH (21:24)
[2019-09-23] MEDS: Gabapentin CAP(*) 400 MG PO SCH (21:25)
[2019-09-23] MEDS: glipiZIDE TAB* 5 MG PO SCH (21:25)
[2019-09-24] MEDS: oxyCODONE/Acetamin 5/325 MG* TAB PO PRN ×4 (01:08→17:12)
[2019-09-24] MEDS: Acetaminophen TAB* 325 MG PO SCH ×4 (01:15→23:38)
[2019-09-24] MEDS: Lactated Ringers 1000 ML Bag* 1,000 ML IV SCH (01:18)
[2019-09-24] MEDS: oxyCODONE TAB* 5 MG TAB PO PRN ×5 (02:53→23:26)
[2019-09-24] MEDS: traMADol TAB* 50 MG PO PRN (02:54)
[2019-09-24] MEDS: ceFAZolin 1 GM ADVAN(*) 1 GM in NS 0.9% 50 ML* 50 ML IVPB SCH ×2 (04:11→11:34)
[2019-09-24] MEDS: Dofetilide CAP* 500 MCG PO SCH ×2 (06:19→18:43)
[2019-09-24 06:34] LABS: Hematocrit 35 % (42-52); Mean Platelet Volume 7.5 fL (7.4-10.4); Platelet Count 266 10^3/uL (150-450)
[2019-09-24 06:49] LABS: BUN/Creatinine Ratio 21.3 (8-20); Calcium 8.7 mg/dL (8.6-10.3); EGFR African American 123.5 (>60); EGFR Non-African American 102.1 (>60); Magnesium 2.3 mg/dL (1.9-2.7); Potassium 4.5 mmol/L (3.5-5.0)
[2019-09-24] MEDS: Famotidine TAB* 20 MG PO SCH ×2 (08:18→20:38)
[2019-09-24] MEDS: Aspirin EC TAB* 81 MG TAB.EC PO SCH (08:18)
[2019-09-24] MEDS: Magnesium Hydroxide LIQ* 30 ML UDC PO SCH ×2 (08:18→20:38)
[2019-09-24] MEDS: Insulin LISPRO* 1 UNITS UNIT SUBCUT SCH ×4 (08:18→20:38)
[2019-09-24] MEDS: amLODIPine TAB* 5 MG PO SCH ×2 (08:18→20:39)
[2019-09-24] MEDS: Magnesium Oxide TAB* 400 MG PO SCH ×2 (08:18→20:39)
[2019-09-24] MEDS: Vitamin THERAPEUTIC TAB PO SCH (08:18)
[2019-09-24] MEDS: Enalapril TAB* 5 MG PO SCH ×2 (08:18→20:38)
[2019-09-24] MEDS: Gabapentin CAP(*) 400 MG PO SCH ×2 (08:19→20:39)
[2019-09-24] MEDS: Isosorbide Mononitrate ER TAB* 60 MG PO SCH (08:19)
[2019-09-24] MEDS: Dabigatran CAP(NF) 150 MG CAP PO SCH ×2 (08:19→20:39)
[2019-09-24] MEDS: Docusate CAP* 100 MG PO SCH ×2 (08:19→20:38)
[2019-09-24] MEDS: metFORMIN* 1,000 MG TAB PO SCH ×2 (08:19→20:39)
[2019-09-24] MEDS: EMPAGLIFLOZIN 10 MG PO SCH (08:26)
[2019-09-24] MEDS ORDERED: Apixaban* 2.5 MG TAB PO SCH (09:00)
--- NOTE | 2019-09-24 11:08 | PN ---
Progress Note - Progress Note Date of Service: 09/24/19 SOAP: Subjective: Pt is doing well. Pain is controlled. Denies F/C, CP/SOB or calf pain. Has chronic N/T in feet with no recent change. Objective: PE- 74 y/o WDWN M NAD, A&Ox3 LLE- dressing c/d/i, calf soft NT, +DF/PF ankle, +2 DP pulse, decreased sensation to light touch distally with no change from baseline Vital Signs Temp Pulse Resp BP Pulse Ox 97.3 F 57 18 140/53 99 09/24/19 07:19 09/24/19 07:19 09/24/19 10:00 09/24/19 07:19 09/24/19 08:00 Laboratory Results - last 24 hr 09/23/19 09/23/19 09/23/19 13:57 16:55 21:13 Hgb Hct Plt Count MPV Sodium Potassium Chloride Carbon Dioxide Anion Gap BUN Creatinine Est GFR ( Amer) Est GFR (Non-Af Amer) BUN/Creatinine Ratio Glucose POC Glucose (mg/dL) 206 H 268 H 312 H Calcium Magnesium 09/24/19 09/24/19 09/24/19 05:44 05:44 07:19 Hgb 12.0 L Hct 35 L Plt Count 266 MPV 7.5 Sodium 133 L Potassium 4.5 Chloride 100 L Carbon Dioxide 29 Anion Gap 4 BUN 16 Creatinine 0.75 Est GFR ( Amer) 123.5 Est GFR (Non-Af Amer) 102.1 BUN/Creatinine Ratio 21.3 H Glucose 149 H POC Glucose (mg/dL) 161 H Calcium 8.7 Magnesium 2.3 Assessment: POD 1 S/P left total hip arthroplasty Plan: WBAT-PT/OT Cont hip precautions Cont pain control with percocet Pradaxa for DVT prophylaxis Plan discharge to home with group home today vs tomorrow. Will reeval after PT this afternoon Scripts sent to [facility] today
--- NOTE | 2019-09-24 12:13 | CONSULT ---
Subjective Date of Service: 09/24/19 Family History: Unchanged from Admission Social History: Unchanged from Admission Past Medical History: Unchanged from Admission Review of Systems - Measurements Intake and Output: Intake and Output Last 24 Hours 09/22/19 09/23/19 09/24/19 09/25/19 06:59 06:59 06:59 06:59 Intake Total 6225 210 Output Total 2950 Balance 3275 210 Weight 239 lb 6 oz Intake: IV Fluids 3890 LR 3890 IVPB 55 ABX - CEFAZOLIN 55 Oral 2280 210 Output: Urine 400 [place] 2550 Other: # Bowel Movements 0 Estimated Blood Loss 250 Comment - Review of Systems Constitutional Symptoms: Positive: Weight Loss Pulmonary: Positive: Normal Cardiology: Positive: Normal Objective Active Medications: Acetaminophen (Tylenol Tab*) 975 mg PO Q8H [facility] Last Admin: 09/24/19 08:15 Dose: Not Given Amlodipine Besylate (Norvasc Tab*) 5 mg PO BID [facility] Last Admin: 09/24/19 08:18 Dose: 5 mg Aspirin (Aspirin Ec Tab*) 81 mg PO QAM [facility] Last Admin: 09/24/19 08:18 Dose: 81 mg Atenolol (Tenormin Tab*) 25 mg PO QPM [facility] Last Admin: 09/23/19 17:04 Dose: 25 mg Atorvastatin Calcium (Lipitor*) 10 mg PO BEDTIME [facility] Last Admin: 09/23/19 21:24 Dose: 10 mg Bisacodyl (Dulcolax Supp*) 10 mg GA DAILY PRN PRN Reason: CONSTIPATION Cyclobenzaprine HCl (Flexeril Tab*) 10 mg PO Q6H PRN PRN Reason: SPASMS Dabigatran (Pradaxa Cap(Nf)) 150 mg PO BID [facility] Last Admin: 09/24/19 08:19 Dose: 150 mg Dextrose (D50w Syringe 50 Ml*) 12.5 gm IV PUSH .FOR FS < 60 - SS PRN PRN Reason: FS < 60 Diphenhydramine HCl (Benadryl Iv*) 25 mg IV Q6H PRN PRN Reason: PRURITIS Diphenhydramine HCl (Benadryl Po*) 25 mg PO Q6H PRN PRN Reason: PRURITIS Docusate Sodium (Colace Cap*) 100 mg PO BID [facility] Last Admin: 09/24/19 08:19 Dose: 100 mg Dofetilide (Tikosyn Cap*) 500 mcg PO BID@0630,1830 [facility] Last Admin: 09/24/19 06:19 Dose: 500 mcg Duloxetine HCl (Cymbalta Cap*) 60 mg PO BEDTIME [facility] Last Admin: 09/23/19 21:24 Dose: 60 mg Ezetimibe (Zetia Tab*) 10 mg PO BEDTIME [facility] Last Admin: 09/23/19 21:24 Dose: 10 mg Empagliflozin (Jardiance (Nf)) 10 mg PO QAM [facility] Last Admin: 09/24/19 08:26 Dose: Not Given Enalapril Maleate (Vasotec Tab*) 10 mg PO BID [facility] Last Admin: 09/24/19 08:18 Dose: 10 mg Famotidine (Pepcid Tab*) 20 mg PO BID [facility]; Protocol Last Admin: 09/24/19 08:18 Dose: 20 mg Gabapentin (Neurontin Cap(*)) 1,200 mg PO BID [facility] Last Admin: 09/24/19 08:19 Dose: 1,200 mg Glipizide (Glucotrol Tab*) 5 mg PO BEDTIME [facility] Last Admin: 09/23/19 21:25 Dose: 5 mg Lactated Ringer's (Lactated Ringers 1000 Ml Bag*) 1,000 mls @ 100 mls/hr IV PER RATE [facility] Last Admin: 09/24/19 01:18 Dose: 100 mls/hr Insulin Human Lispro (Humalog*) 0 units [facility]; Protocol Last Admin: 09/24/19 08:18 Dose: 2 unit Isosorbide Mononitrate (Imdur Er Tab*) 60 mg PO QAM [facility] Last Admin: 09/24/19 08:19 Dose: 60 mg Lactulose (Lactulose*) 30 ml PO BID PRN PRN Reason: CONSTIPATION Magnesium Hydroxide (Milk Of Magnesia Liq*) 30 ml PO BID [facility] Last Admin: 09/24/19 08:18 Dose: 30 ml Magnesium Hydroxide (Milk Of Magnesia Liq*) 30 ml PO Q6H PRN PRN Reason: CONSTIPATION Magnesium Oxide (Magox 400 Tab*) 400 mg PO BID [facility] Last Admin: 09/24/19 08:18 Dose: 400 mg Metformin HCl (Glucophage*) 1,000 mg PO BID [facility] Last Admin: 09/24/19 08:19 Dose: 1,000 mg Morphine Sulfate (Morphine Inj (Syringe))*) 2 mg IV Q4H PRN PRN Reason: Pain - Unrelieved Last Admin: 09/23/19 15:42 Dose: 2 mg Multivitamins (Theragran Tab*) 1 tab PO DAILY [facility] Last Admin: 09/24/19 08:18 Dose: 1 tab Nitroglycerin (Nitroglycerin Tab 0.4 Mg*) 0.4 mg SL Q5M PRN PRN Reason: Chest Pain Ondansetron HCl (Zofran Inj*) 4 mg IV Q6H PRN PRN Reason: NAUSEA Ondansetron HCl (Zofran Odt Tab*) 4 mg PO Q6H PRN PRN Reason: NAUSEA Ondansetron HCl (Zofran Tab*) 4 mg PO Q6H PRN PRN Reason: NAUSEA Oxycodone HCl (Roxycodone Tab*) 10 mg PO Q4H PRN PRN Reason: Pain - Breakthrough Last Admin: 09/24/19 11:38 Dose: 10 mg Oxycodone/Acetaminophen (Percocet 5/325 Tab*) 2 tab PO Q4H PRN PRN Reason: PAIN - SEVERE Last Admin: 09/24/19 09:45 Dose: 2 tab Polyethylene Glycol/Electrolytes (Miralax (17 Gm Dose Luis)) 17 gm PO DAILY PRN PRN Reason: Constipation Tamsulosin HCl (Flomax Cap*) 0.8 mg PO BEDTIME [facility] Last Admin: 09/23/19 21:24 Dose: 0.8 mg Tramadol HCl (Ultram*) 50 mg PO Q6H PRN PRN Reason: PAIN - MODERATE Last Admin: 09/24/19 02:54 Dose: 50 mg Vital Signs - 8 hr 09/24/19 09/24/19 09/24/19 04:57 04:58 06:59 Temperature Pulse Rate Respiratory 18 18 18 Rate Blood Pressure (mmHg) O2 Sat by Pulse Oximetry 09/24/19 09/24/19 09/24/19 07:00 07:19 08:00 Temperature 97.3 F Pulse Rate 57 Respiratory 18 16 18 Rate Blood Pressure 140/53 (mmHg) O2 Sat by Pulse 99 99 Oximetry 09/24/19 09/24/19 09/24/19 08:19 08:28 09:45 Temperature Pulse Rate Respiratory 18 18 18 Rate Blood Pressure (mmHg) O2 Sat by Pulse Oximetry 09/24/19 09/24/19 09/24/19 10:00 11:18 11:38 Temperature 97.5 F Pulse Rate 59 Respiratory 18 17 18 Rate Blood Pressure 132/44 (mmHg) O2 Sat by Pulse 98 Oximetry 09/24/19 11:44 Temperature Pulse Rate Respiratory 18 Rate Blood Pressure (mmHg) O2 Sat by Pulse Oximetry Oxygen Devices in Use Now: None Result Diagrams: 09/24/19 05:44 09/24/19 05:44 Assessment/Plan - Billing Plan By Medical Problem: 1. 2. VTE PPX: Diet: Code Status: Admission Status and Rationale:
--- NOTE | 2019-09-24 16:42 | PN ---
Subjective Date of Service: 09/24/19 Interval History: Pt with hx of CAD, LAD stents x 4, Afib, DM II, Diabetic Neuropathy, and hyperlipidemia. Pt sitting up in chair eating full meal. Ambulated from restroom back to recliner chair with walker. Alert and oriented x 3. Spouse is at bedside. Family History: Unchanged from Admission Social History: Unchanged from Admission Past Medical History: Unchanged from Admission Objective Active Medications: Acetaminophen (Tylenol Tab*) 975 mg PO Q8H [facility] Last Admin: 09/24/19 16:35 Dose: Not Given Amlodipine Besylate (Norvasc Tab*) 5 mg PO BID [facility] Last Admin: 09/24/19 08:18 Dose: 5 mg Aspirin (Aspirin Ec Tab*) 81 mg PO QAM [facility] Last Admin: 09/24/19 08:18 Dose: 81 mg Atenolol (Tenormin Tab*) 25 mg PO QPM [facility] Last Admin: 09/23/19 17:04 Dose: 25 mg Atorvastatin Calcium (Lipitor*) 10 mg PO BEDTIME [facility] Last Admin: 09/23/19 21:24 Dose: 10 mg Bisacodyl (Dulcolax Supp*) 10 mg MI DAILY PRN PRN Reason: CONSTIPATION Cyclobenzaprine HCl (Flexeril Tab*) 10 mg PO Q6H PRN PRN Reason: SPASMS Dabigatran (Pradaxa Cap(Nf)) 150 mg PO BID [facility] Last Admin: 09/24/19 08:19 Dose: 150 mg Dextrose (D50w Syringe 50 Ml*) 12.5 gm IV PUSH .FOR FS < 60 - SS PRN PRN Reason: FS < 60 Diphenhydramine HCl (Benadryl Iv*) 25 mg IV Q6H PRN PRN Reason: PRURITIS Diphenhydramine HCl (Benadryl Po*) 25 mg PO Q6H PRN PRN Reason: PRURITIS Docusate Sodium (Colace Cap*) 100 mg PO BID [facility] Last Admin: 09/24/19 08:19 Dose: 100 mg Dofetilide (Tikosyn Cap*) 500 mcg PO BID@0630,1830 [facility] Last Admin: 09/24/19 06:19 Dose: 500 mcg Duloxetine HCl (Cymbalta Cap*) 60 mg PO BEDTIME [facility] Last Admin: 09/23/19 21:24 Dose: 60 mg Ezetimibe (Zetia Tab*) 10 mg PO BEDTIME [facility] Last Admin: 09/23/19 21:24 Dose: 10 mg Empagliflozin (Jardiance (Nf)) 10 mg PO QAM [facility] Last Admin: 09/24/19 08:26 Dose: Not Given Enalapril Maleate (Vasotec Tab*) 10 mg PO BID [facility] Last Admin: 09/24/19 08:18 Dose: 10 mg Famotidine (Pepcid Tab*) 20 mg PO BID [facility]; Protocol Last Admin: 09/24/19 08:18 Dose: 20 mg Gabapentin (Neurontin Cap(*)) 1,200 mg PO BID [facility] Last Admin: 09/24/19 08:19 Dose: 1,200 mg Glipizide (Glucotrol Tab*) 5 mg PO BEDTIME [facility] Last Admin: 09/23/19 21:25 Dose: 5 mg Lactated Ringer's (Lactated Ringers 1000 Ml Bag*) 1,000 mls @ 100 mls/hr IV PER RATE [facility] Last Admin: 09/24/19 01:18 Dose: 100 mls/hr Insulin Human Lispro (Humalog*) 0 units SUBCUT ACHS [facility]; Protocol Last Admin: 09/24/19 12:13 Dose: 4 unit Isosorbide Mononitrate (Imdur Er Tab*) 60 mg PO QAM [facility] Last Admin: 09/24/19 08:19 Dose: 60 mg Lactulose (Lactulose*) 30 ml PO BID PRN PRN Reason: CONSTIPATION Magnesium Hydroxide (Milk Of Magnesia Liq*) 30 ml PO BID [facility] Last Admin: 09/24/19 08:18 Dose: 30 ml Magnesium Hydroxide (Milk Of Magnesia Liq*) 30 ml PO Q6H PRN PRN Reason: CONSTIPATION Magnesium Oxide (Magox 400 Tab*) 400 mg PO BID [facility] Last Admin: 09/24/19 08:18 Dose: 400 mg Metformin HCl (Glucophage*) 1,000 mg PO BID [facility] Last Admin: 09/24/19 08:19 Dose: 1,000 mg Morphine Sulfate (Morphine Inj (Syringe))*) 2 mg IV Q4H PRN PRN Reason: Pain - Unrelieved Last Admin: 09/23/19 15:42 Dose: 2 mg Multivitamins (Theragran Tab*) 1 tab PO DAILY [facility] Last Admin: 09/24/19 08:18 Dose: 1 tab Nitroglycerin (Nitroglycerin Tab 0.4 Mg*) 0.4 mg SL Q5M PRN PRN Reason: Chest Pain Ondansetron HCl (Zofran Inj*) 4 mg IV Q6H PRN PRN Reason: NAUSEA Ondansetron HCl (Zofran Odt Tab*) 4 mg PO Q6H PRN PRN Reason: NAUSEA Ondansetron HCl (Zofran Tab*) 4 mg PO Q6H PRN PRN Reason: NAUSEA Oxycodone HCl (Roxycodone Tab*) 10 mg PO Q4H PRN PRN Reason: Pain - Breakthrough Last Admin: 09/24/19 11:38 Dose: 10 mg Oxycodone/Acetaminophen (Percocet 5/325 Tab*) 2 tab PO Q4H PRN PRN Reason: PAIN - SEVERE Last Admin: 09/24/19 09:45 Dose: 2 tab Polyethylene Glycol/Electrolytes (Miralax (17 Gm Dose Luis)) 17 gm PO DAILY PRN PRN Reason: Constipation Tamsulosin HCl (Flomax Cap*) 0.8 mg PO BEDTIME [facility] Last Admin: 09/23/19 21:24 Dose: 0.8 mg Tramadol HCl (Ultram*) 50 mg PO Q6H PRN PRN Reason: PAIN - MODERATE Last Admin: 09/24/19 02:54 Dose: 50 mg Vital Signs - 8 hr 09/24/19 09/24/19 09/24/19 09:45 10:00 11:18 Temperature 97.5 F Pulse Rate 59 Respiratory 18 18 17 Rate Blood Pressure 132/44 (mmHg) O2 Sat by Pulse 98 Oximetry 09/24/19 09/24/19 09/24/19 11:38 11:44 14:21 Temperature Pulse Rate Respiratory 18 18 18 Rate Blood Pressure (mmHg) O2 Sat by Pulse Oximetry 09/24/19 15:47 Temperature 98.7 F Pulse Rate 68 Respiratory 16 Rate Blood Pressure 159/65 (mmHg) O2 Sat by Pulse 92 Oximetry Oxygen Devices in Use Now: None Eyes: No Scleral Icterus, PERRLA Ears/Nose/Mouth/Throat: NL Teeth, Lips, Gums, Mucous Membranes Moist Neck: NL Appearance and Movements; NL JVP, Trachea Midline, No Thyroid Enlargement, Masses Respiratory: Symmetrical Chest Expansion and Respiratory Effort, Clear to Auscultation Cardiovascular: NL Sounds; No Murmurs; No JVD Abdominal: NL Sounds; No Tenderness; No Distention, No Hepatosplenomegaly Skin: No Rash or Ulcers, No Nodules or Sclerosis Neurological: Alert and Oriented x 3, NL Sensation, NL Muscle Strength and Tone , - - Ambulates with walker minimal assist. Result Diagrams: 09/24/19 05:44 09/24/19 05:44 Assess/Plan/Problems-Billing - Patient Problems (1) Status post total hip replacement, left Comment: Management per orthopedics PT/OT per orthopedics Pain management per orthopedics (2) Hypertension Comment: Chronic continue regimen Amlodipine Enalapril (3) Afib Comment: Chronic Continue Regimen Atenolol Pradaxa ASA (EC) Tikosyn (4) CAD (coronary artery disease) Comment: Chronic Continue Regimen Atenolol Pradaxa ASA (EC) Tikosyn Atorvastatin Zetia (5) Diabetes mellitus Current Visit: Yes Comment: Chronic continue regimen Lispro sliding scale finger sticks AC and HS (6) Diabetic neuropathy Comment: chronic continue regimen Gabapentin (7) Full code status (8) DVT prophylaxis Comment: Pradaxa SCD's
[2019-09-24] MEDS: Atenolol TAB* 25 MG PO SCH (17:46)
[2019-09-24] MEDS: Ezetimibe TAB* 10 MG PO SCH (20:38)
[2019-09-24] MEDS: DULoxetine DR CAP* 60 MG CAP.DR PO SCH (20:38)
[2019-09-24] MEDS: Atorvastatin* 10 MG TAB PO SCH (20:39)
[2019-09-24] MEDS: glipiZIDE TAB* 5 MG PO SCH (20:39)
[2019-09-24] MEDS: Tamsulosin CAP* 0.4 MG PO SCH (20:39)
[2019-09-25] MEDS: oxyCODONE TAB* 5 MG TAB PO PRN (03:27)
[2019-09-25 06:04] LABS: Hematocrit 31 % (42-52); Hemoglobin 10.6 g/dL (14.0-18.0); Mean Platelet Volume 7.2 fL (7.4-10.4); Platelet Count 215 10^3/uL (150-450)
[2019-09-25] MEDS: oxyCODONE/Acetamin 5/325 MG* TAB PO PRN ×2 (06:12→10:51)
[2019-09-25] MEDS: Dofetilide CAP* 500 MCG PO SCH (06:12)
[2019-09-25 06:21] LABS: BUN/Creatinine Ratio 21.3 (8-20); Calcium 8.2 mg/dL (8.6-10.3); EGFR African American 123.5 (>60); EGFR Non-African American 102.1 (>60); Potassium 4.8 mmol/L (3.5-5.0)
[2019-09-25] MEDS: traMADol TAB* 50 MG PO PRN (07:32)
[2019-09-25] MEDS: Insulin LISPRO* 1 UNITS UNIT SUBCUT SCH (08:04)
--- NOTE | 2019-09-25 09:00 | PN ---
Progress Note - Progress Note Date of Service: 09/25/19 SOAP: Subjective: resting in bed, pain well controlled, ambulating well with PT; no complaints Objective: Vital Signs Temp Pulse Resp BP Pulse Ox 97.3 F 67 14 138/60 97 09/25/19 07:40 09/25/19 07:40 09/25/19 07:40 09/25/19 07:40 09/25/19 07:40 Laboratory Last Values Hgb 10.6 g/dL (14.0-18.0) L 09/25/19 05:48 Hct 31 % (42-52) L 09/25/19 05:48 Plt Count 215 10^3/uL (150-450) 09/25/19 05:48 MPV 7.2 fL (7.4-10.4) L 09/25/19 05:48 INR (Anticoag Therapy) 1.12 (0.82-1.09) H 09/23/19 09:20 APTT 33.1 seconds (26.0-38.0) 09/23/19 09:20 Sodium 130 mmol/L (135-145) L 09/25/19 05:48 Potassium 4.8 mmol/L (3.5-5.0) 09/25/19 05:48 Chloride 98 mmol/L (101-111) L 09/25/19 05:48 Carbon Dioxide 30 mmol/L (22-32) 09/25/19 05:48 Anion Gap 2 mmol/L (2-11) 09/25/19 05:48 BUN 16 mg/dL (6-24) 09/25/19 05:48 Creatinine 0.75 mg/dL (0.67-1.17) 09/25/19 05:48 Est GFR ( Amer) 123.5 (>60) 09/25/19 05:48 Est GFR (Non-Af Amer) 102.1 (>60) 09/25/19 05:48 BUN/Creatinine Ratio 21.3 (8-20) H 09/25/19 05:48 Glucose 192 mg/dL (70-100) H 09/25/19 05:48 POC Glucose (mg/dL) 202 mg/dL (70-100) H 09/25/19 07:24 Calcium 8.2 mg/dL (8.6-10.3) L 09/25/19 05:48 Magnesium 2.3 mg/dL (1.9-2.7) 09/24/19 05:44 incision: c/d/i; dressing changed PE: able to DF/PF, 2+ DP pulse and intact sensation Assessment: s/p left FREDA; POD #2 Plan: 1) PT/OT- WBAT 2) Pradaxa/ ASA for DVT prophylaxis 3) Home today; F/U with Neeraj in 2 weeks
[2019-09-25 09:26] VITALS: BP 148/49
[2019-09-25] MEDS: EMPAGLIFLOZIN 10 MG PO SCH (09:30)
[2019-09-25] MEDS: Dabigatran CAP(NF) 150 MG CAP PO SCH (09:31)
[2019-09-25] MEDS: Docusate CAP* 100 MG PO SCH (09:31)
[2019-09-25] MEDS: Magnesium Hydroxide LIQ* 30 ML UDC PO SCH (09:31)
[2019-09-25] MEDS: amLODIPine TAB* 5 MG PO SCH (09:31)
[2019-09-25] MEDS: Aspirin EC TAB* 81 MG TAB.EC PO SCH (09:31)
[2019-09-25] MEDS: Magnesium Oxide TAB* 400 MG PO SCH (09:31)
[2019-09-25] MEDS: metFORMIN* 1,000 MG TAB PO SCH (09:32)
[2019-09-25] MEDS: Gabapentin CAP(*) 400 MG PO SCH (09:32)
[2019-09-25] MEDS: Isosorbide Mononitrate ER TAB* 60 MG PO SCH (09:32)
[2019-09-25] MEDS: Vitamin THERAPEUTIC TAB PO SCH (09:32)
[2019-09-25] MEDS: Enalapril TAB* 5 MG PO SCH (09:32)
[2019-09-25] MEDS: Famotidine TAB* 20 MG PO SCH (09:32)
[2019-09-25] MEDS: Acetaminophen TAB* 325 MG PO SCH (09:37)
--- NOTE | 2019-09-25 10:23 | DS ---
DISCHARGE SUMMARY: DATE OF ADMISSION: 09/23/19 DATE OF DISCHARGE: 09/25/19 SURGEON: Dr. Varsha Pickard.* (DICTATED BY ENRIQUE MA) PRINCIPAL DIAGNOSIS: Left hip osteoarthritis. DISCHARGE DIAGNOSIS: Same as above. DISCHARGE DISPOSITION: Discharged home in stable condition. HISTORY OF PRESENT ILLNESS: Mr. Vuong is a 74-year-old gentleman with end- stage osteoarthritis of the left hip. He failed conservative treatment and elected to proceed with left total hip arthroplasty. HOSPITAL COURSE: Mr. Vuong was admitted electively to the hospital on 09/23/19 and underwent a left total hip arthroplasty. Postoperatively, he did well. He was placed on his preop Pradaxa dose twice daily as well as aspirin for DVT prophylaxis. Postoperative day 1, his H and H was 12 and 35; on postoperative day 2 was 10.6 and 31. His vital signs were stable at the time of discharge and he was doing well with physical therapy. DISCHARGE MEDICATIONS: 1. Pradaxa 150 mg twice a day. 2. Aspirin 81 mg daily. 3. Norvasc 5 mg twice a day. 4. Atenolol 25 mg daily. 5. Lipitor 10 mg q.h.s. 6. Colace 100 mg 2 to 3 tabs daily as needed. 7. Tikosyn 500 mg twice a day. 8. Cymbalta 60 mg q.h.s. 9. Jardiance 10 mg daily. 10. Enalapril 10 mg twice a day. 11. Zetia 10 mg q.h.s. 12. Gabapentin 1200 mg twice a day. 13. Glipizide 5 mg daily. 14. Insulin. 15. Magnesium 400 mg twice a day. 16. Metformin 1000 mg twice a day. 17. Multivitamin. 18. Nitroglycerin sublingual as needed. 19. Percocet 5/325 one to two tabs every 4 to 6 hours as needed for pain. 20. Flexeril 10 mg tab 2 to 3 daily as needed for spasms. 21. Flomax 0.8 mg daily. PHYSICAL EXAM UPON DISCHARGE: He is afebrile. Vital signs are stable. The wound was clean and dry. He was ambulating well with physical therapy using a walker. He was able to dorsiflex and plantarflex, has 2+ dorsalis pedis pulse and intact sensation. DISCHARGE INSTRUCTIONS: He was discharged home. He was given Percocet for pain. He will continue with Pradaxa twice a day as well as aspirin daily for DVT prophylaxis. He is weightbearing as tolerated. We did discuss the posterior hip precautions with him, he understands these. He will be getting home physical therapy with [facility] and will follow up with Dr. Pickard in clinic in 2 weeks. ENRIQUE MA [id number]/[facility] #: [id number]
== END 2019-09-25 11:00 | disposition home or self-care (01) | DRG 470 ==
LOC: AA 07:46 → SSU 13:20
PROVIDERS: ADMIT Orthopaedic Surgery Adult Reconstructive Orthopaedic Surgery; ATTEND Orthopaedic Surgery Adult Reconstructive Orthopaedic Surgery
PROC: 0SR904A Replacement of Right Hip Joint with Ceramic on Polyethylene Synthetic Substitute, Uncemented, Open Approach (ICD-10-PCS; principal; 2019-09-23 11:00)
DX: M16.0 Bilateral primary osteoarthritis of hip (principal); G47.33 Obstructive sleep apnea (adult) (pediatric); I25.10 Atherosclerotic heart disease of native coronary artery without angina pectoris; I10 Essential (primary) hypertension; K21.9 Gastro-esophageal reflux disease without esophagitis; Z96.651 Presence of right artificial knee joint; F41.9 Anxiety disorder, unspecified; E55.9 Vitamin D deficiency, unspecified; E11.51 Type 2 diabetes mellitus with diabetic peripheral angiopathy without gangrene; N40.0 Benign prostatic hyperplasia without lower urinary tract symptoms; I48.0 Paroxysmal atrial fibrillation; E11.42 Type 2 diabetes mellitus with diabetic polyneuropathy; E66.9 Obesity, unspecified; J44.9 Chronic obstructive pulmonary disease, unspecified; I65.23 Occlusion and stenosis of bilateral carotid arteries; I71.2 Thoracic aortic aneurysm, without rupture; E78.2 Mixed hyperlipidemia; Z95.5 Presence of coronary angioplasty implant and graft; Z85.820 Personal history of malignant melanoma of skin; Z85.828 Personal history of other malignant neoplasm of skin; Z79.82 Long term (current) use of aspirin; Z79.84 Long term (current) use of oral hypoglycemic drugs; Z79.899 Other long term (current) drug therapy; Z87.891 Personal history of nicotine dependence; Z68.33 Body mass index [BMI] 33.0-33.9, adult; Z98.1 Arthrodesis status
CPT/HCPCS: 36415; 72170; 80048; 83735; 85014; 85018; 85049; 85610; 85730; A9270-GY; C1713; C1776; J0690; J1100; J1170; J2001; J2250; J2270; J2405; J2704; J3010

== ENCOUNTER 2020-06-08 07:15 | Observation (INO) ==
[~2020-06-08 07:15] MED LIST changes: -Acetaminophen TAB* 325 MG PO ONE; +Buffered Lidocaine 1% SYRIN 1 ml INTRADERM ONE; -Buffered Lidocaine 1% SYRIN* 1 ML/SYRINGE INTRADERM ONE; -Gabapentin CAP(*) 300 MG PO ONE; -Lactated Ringers 1000 ML Bag* 1,000 ML IV SCH; +Lactated Ringers 1000 ml BAG 1,000 ML IV SCH; -celeCOXIB CAP* 200 MG PO ONE
[2020-06-08] MEDS ORDERED: ceFAZolin 2 GM in NS PREMIX 2 GM/100 ML BAG IVPB ONE (07:32)
[2020-06-08] MEDS ORDERED: Succinylcholine 200 mg VIAL 20 mg/ml 10 ml VIAL (200 mg) ONE (08:04)
[2020-06-08] MEDS ORDERED: Propofol 10 MG/ML 20 ML BTL ONE (08:04)
[2020-06-08] MEDS ORDERED: Midazolam 2 mg/2 ml VIAL 1 mg/ml 2 ml VIAL (2 mg) ONE (08:04)
[2020-06-08] MEDS ORDERED: fentaNYL 100 mcg/2 ml 50 MCG/ML VIAL ONE (08:04)
[2020-06-08] MEDS ORDERED: Lidocaine 2% PF 5 ML VIAL ONE ×2 (08:04→08:08)
[2020-06-08] MEDS ORDERED: Dexmedetomidine 200 mcg/2 ml 2 ml VIAL (200 mcg) ONE (08:08)
[2020-06-08] MEDS ORDERED: ROPIVACAINE 5 MG/ML 30 ML BTL (0.5%) ONE ×2 (08:08→08:57)
[2020-06-08 09:12] LABS: Activated Partial Thrombo Time 29.5 seconds (26.0-38.0); INR 1.13 (0.82-1.09)
[2020-06-08] MEDS ORDERED: Phenylephrine IV 10 MG/ML 1 ml VIAL ONE (09:14)
[2020-06-08] MEDS ORDERED: Rocuronium 50 mg VIAL 10 mg/ml 5 ml VIAL (50 mg) ONE ×2 (09:57→10:34)
[2020-06-08] MEDS ORDERED: Dexamethasone IV 4 MG/ML VIAL 1 ml VIAL ONE (10:12)
[2020-06-08] MEDS ORDERED: Atropine 1 MG/ML INJ 1 ML VIAL ONE (10:27)
[2020-06-08] MEDS ORDERED: HYDROmorphone 1 MG/1 ML SYRINGE IV PRN (10:57)
[2020-06-08] MEDS ORDERED: DiMENhydriNATE IV 50 mg/ml 1 ml VIAL IV PUSH PRN (10:57)
[2020-06-08] MEDS ORDERED: Naloxone 0.4 mg VIAL 0.4 mg/ml 1 ml VIAL IV PRN (10:57)
[2020-06-08] MEDS ORDERED: Ondansetron 4 mg VIAL 2 MG/ML 2 ml VIAL ONE (11:37)
[2020-06-08] MEDS ORDERED: Acetaminophen IV 1 GM/100ML 100 ML ONE (11:37)
[2020-06-08] MEDS ORDERED: Metoclopramide 5 MG/ML VIAL (10 mg) ONE (11:37)
[2020-06-08] MEDS ORDERED: oxyCODONE/Acetamin 5/325 mg TAB PO PRN (12:25)
[2020-06-08] MEDS ORDERED: Ondansetron ODT 4 mg TAB 4 MG TAB PO PRN (12:25)
[2020-06-08] MEDS ORDERED: diPHENhydraMINE IV 50 MG/ML 1 ml VIAL (BENADRYL) IV PRN (12:25)
[2020-06-08] MEDS ORDERED: diPHENhydraMINE 25 mg TAB PO PRN (12:25)
[2020-06-08] MEDS ORDERED: Lactulose 30 ml UDC PO PRN (12:25)
[2020-06-08] MEDS ORDERED: Magnesium Hydroxide LIQ 30 ML UDC PO PRN (12:25)
[2020-06-08] MEDS ORDERED: Morphine 2 MG/ML SYRINGE IV PRN (12:25)
[2020-06-08] MEDS ORDERED: Ondansetron 4 mg VIAL 2 MG/ML 2 ml VIAL IV PRN (12:25)
[2020-06-08] MEDS: Lactated Ringers 1000 ml BAG 1,000 ML IV SCH ×2 (13:32→23:49)
[2020-06-08] MEDS: oxyCODONE/Acetamin 5/325 mg TAB PO PRN ×2 (15:44→20:33)
[2020-06-08] MEDS: DULoxetine DR 60 mg CAP PO SCH (18:10)
[2020-06-08] MEDS: ceFAZolin 1 GM ADVAN 1 GM in NS 0.9% 50 ML 50 ML IVPB SCH (18:12)
[2020-06-08] MEDS: Magnesium Hydroxide LIQ 30 ML UDC PO SCH (20:33)
[2020-06-09] MEDS ORDERED: Polyethylene Glycol 3350 17 GM PACKET PO PRN (00:01)
[2020-06-09] MEDS: ceFAZolin 1 GM ADVAN 1 GM in NS 0.9% 50 ML 50 ML IVPB SCH ×2 (01:46→10:07)
[2020-06-09] MEDS: oxyCODONE/Acetamin 5/325 mg TAB PO PRN ×4 (03:09→15:33)
[2020-06-09 07:04] LABS: BUN/Creatinine Ratio 26.3 (8-20); Calcium 8.4 mg/dL (8.6-10.3); EGFR African American 114.7 (>60); EGFR Non-African American 94.8 (>60); Hematocrit 36 % (42-52); Hemoglobin 12.1 g/dL (14.0-18.0); Mean Platelet Volume 7.7 fL (7.4-10.4); Platelet Count 261 10^3/uL (150-450)
[2020-06-09] MEDS ORDERED: Cholecalciferol (VIT D3) 1,000 unit TAB PO SCH (09:00)
[2020-06-09] MEDS ORDERED: Influenza VAC *QUAD* 2020-21* 0.5 ML SYRINGE IM ONE (09:00)
[2020-06-09] MEDS ORDERED: DABIGATRAN 150 MG PO SCH (09:00)
[2020-06-09] MEDS ORDERED: Vitamin THERAPEUTIC TAB PO SCH (09:00)
[2020-06-09] MEDS ORDERED: NF: Empaglifozin 10 mg TAB (NF) PO SCH (09:00)
[2020-06-09] MEDS ORDERED: Isosorbide Mononit ER 60mg TAB PO SCH (09:00)
[2020-06-09] MEDS ORDERED: Aspirin EC 81 mg TAB.EC (enteric coated) PO SCH (09:00)
[2020-06-09] MEDS: Magnesium Hydroxide LIQ 30 ML UDC PO SCH (09:35)
[2020-06-09 17:32] VITALS: BP 125/55
[2020-06-09] MEDS: DULoxetine DR 60 mg CAP PO SCH (17:39)
== END 2020-06-09 18:15 | disposition home or self-care (01) ==
LOC: OR 07:15 → SSU 07:15
PROVIDERS: ADMIT Orthopaedic Surgery Adult Reconstructive Orthopaedic Surgery; ATTEND Orthopaedic Surgery Adult Reconstructive Orthopaedic Surgery

== ENCOUNTER 2023-07-17 08:30 | Observation (INO) ==
[~2023-07-17 08:30] MED LIST changes: +Naloxone 0.4 mg VIAL 0.4 mg/ml 1 ml VIAL IV PRN; +Sodium Citrate/Citric Acid LIQ 15 ML UDC PO ONE
[2023-07-17] MEDS ORDERED: Ondansetron 4 mg VIAL 2 MG/ML 2 ml VIAL ONE (09:03)
[2023-07-17] MEDS ORDERED: Propofol 10 MG/ML 20 ML BTL ONE (09:03)
[2023-07-17] MEDS ORDERED: Lidocaine 2% PF 5 ML VIAL ONE (09:03)
[2023-07-17] MEDS ORDERED: Dexamethasone IV 4 MG/ML VIAL 1 ml VIAL ONE (09:03)
[2023-07-17] MEDS ORDERED: Midazolam 2 mg/2 ml VIAL 1 mg/ml 2 ml VIAL (2 mg) ONE (09:07)
[2023-07-17] MEDS ORDERED: fentaNYL 100 mcg/2 ml 50 MCG/ML VIAL ONE ×3 (09:07→15:13)
[2023-07-17] MEDS ORDERED: Acetaminophen IV 1 GM/100ML 0 MG/0 ML BAG IV ONE (09:13)
[2023-07-17] MEDS ORDERED: ceFAZolin 2 GM PREMIX 2 GM/50 ML BAG ONE (09:47)
[2023-07-17] MEDS ORDERED: Tranexamic Acid 1 GM/100ML BAG 2,000 MG/200 ML BAG IV ONE (09:47)
[2023-07-17 10:12] LABS: Rapid COVID-19 Molecular Undetected (Undetected)
[2023-07-17] MEDS ORDERED: ROPIVACAINE 5 MG/ML 30 ML BTL (0.5%) ONE ×2 (10:30→10:42)
[2023-07-17] MEDS ORDERED: Rocuronium 50 mg VIAL 10 mg/ml 5 ml VIAL (50 mg) ONE (10:40)
[2023-07-17 10:44] LABS: INR 1.15 (0.83-1.13)
[2023-07-17] MEDS ORDERED: Ropivacaine 5 MG/ML 20 ML VIAL 0.5% (100 MG) ONE (10:55)
[2023-07-17] MEDS ORDERED: HYDROmorphone 0.5 MG/0.5 ML SYRINGE ONE ×2 (11:41→11:42)
[2023-07-17] MEDS ORDERED: Glycopyrrolate IV 0.2 MG/ML 1 ML VIAL ONE (12:21)
[2023-07-17] MEDS ORDERED: Acetaminophen IV 1 GM/100ML 1,000 MG/100 ML BAG IV ONE (12:46)
[2023-07-17] MEDS ORDERED: Magnesium Hydroxide LIQ 30 ML UDC PO PRN (13:00)
[2023-07-17] MEDS ORDERED: Lactulose 30 ml UDC PO PRN (13:00)
[2023-07-17] MEDS ORDERED: Scopolamine 1 mg/72hr PATCH TRANSDERM PRN (13:08)
[2023-07-17] MEDS: fentaNYL 100 mcg/2 ml 50 MCG/ML VIAL IV PRN ×2 (15:15→15:27)
[2023-07-17] MEDS ORDERED: Enalaprilat IV 1.25 mg/ml 1 ml VIAL (1.25 MG) IV ONE ×2 (15:47→17:23)
[2023-07-17] MEDS: Lactated Ringers 1000 ml BAG 1,000 ML IV SCH (17:15)
[2023-07-17] MEDS: Morphine 2 MG/ML SYRINGE IV PRN (18:31)
[2023-07-17] MEDS ORDERED: NF: IPRATROPIUM BR (NF)0.06% NASAL 1 SPRAY BTL BOTH NARES SCH (21:00)
[2023-07-17] MEDS ORDERED: DULoxetine DR 60 mg CAP PO SCH (21:00)
[2023-07-17] MEDS ORDERED: PREGABALIN 150 MG PO SCH (21:00)
[2023-07-17] MEDS: ceFAZolin 1 GM ADVAN 1 GM in NS 0.9% 50 ML 50 ML IVPB SCH (21:45)
[2023-07-17] MEDS: Magnesium Hydroxide LIQ 30 ML UDC PO SCH (21:56)
[2023-07-17] MEDS: ALPHA LIPOIC ACID 600 MG PO SCH (21:57)
[2023-07-18] MEDS: Morphine 2 MG/ML SYRINGE IV PRN (01:07)
[2023-07-18] MEDS: Lactated Ringers 1000 ml BAG 1,000 ML IV SCH (03:47)
[2023-07-18] MEDS: ceFAZolin 1 GM ADVAN 1 GM in NS 0.9% 50 ML 50 ML IVPB SCH ×2 (03:48→12:27)
[2023-07-18 07:05] LABS: Hematocrit 38.2 % (38-53); Hemoglobin 12.9 g/dL (13.2-16.3); Platelet Count 233 10^3/uL (150-450)
[2023-07-18 07:24] LABS: Calcium 8.5 mg/dL (8.6-10.3); Creatinine, Serum 0.85 mg/dL (0.67-1.17); Potassium 4.3 mmol/L (3.5-5.0); eGFR CKD-EPI 89.5 (>60)
[2023-07-18] MEDS: Magnesium Hydroxide LIQ 30 ML UDC PO SCH (08:39)
[2023-07-18] MEDS: ALPHA LIPOIC ACID 600 MG PO SCH (08:40)
[2023-07-18] MEDS ORDERED: Aspirin EC 81 mg TAB.EC (enteric coated) PO SCH (09:00)
[2023-07-18] MEDS ORDERED: CMCS: Dabigatran 150 mg CAP (NF) PO SCH (09:00)
[2023-07-18] MEDS ORDERED: NF: Dulaglutide (NF) 1.5 MG/0.5 ML SYRINGE SUBCUT SCH (09:00)
[2023-07-18] MEDS ORDERED: Vitamin THERAPEUTIC TAB PO SCH (09:00)
[2023-07-18] MEDS ORDERED: Empagliflozin 25 MG TAB PO SCH (09:00)
[2023-07-18] MEDS ORDERED: Isosorbide Mononit ER 60mg TAB PO SCH (09:00)
[2023-07-18 09:42] VITALS: BP 143/58
== END 2023-07-18 13:35 | disposition home or self-care (01) ==
LOC: AA 08:30 → INTOOBSV 08:30 → SSU 17:26
PROVIDERS: ADMIT Orthopaedic Surgery Adult Reconstructive Orthopaedic Surgery; ATTEND Orthopaedic Surgery Adult Reconstructive Orthopaedic Surgery